=== PATIENT | female | born 1970 | race Caucasian/White ===

== ENCOUNTER 2020-10-11 09:15 | Outpatient (REF) | payer OTHER, SELFPAY ==
[2020-10-11 10:24] LABS: Alanine Aminotransferase 31 U/L (0-31); Albumin Level 4.2 g/dL (3.5-5.0); Alkaline Phosphatase 56 U/L (39-117); Anion Gap 10 (12-20); Aspartate Amino Transferase 20 U/L (5-31); Bilirubin Total 0.6 mg/dL (0.0-1.0); Blood Urea Nitrogen 19 mg/dL (9-16); Calcium 9.4 mg/dL (8.4-10.2); Carbon Dioxide 29 mmol/L (22-29); Chloride 105 mmol/L (96-108); Cholesterol 192 mg/dL; Estimated Glomerular Filt Rate > 60; Glucose Fasting 94 mg/dL (60-99); HDL Cholesterol 63 mg/dL; LDL Cholesterol Calculated 121 mg/dl; Sodium 139 mmol/L (135-145); Total Protein 6.7 g/dL (6.5-8.0); Triglycerides 43 mg/dL
[2020-10-16 19:32] LABS: Vitamin D 25-OH, D2 <4 ng/mL; Vitamin D 25-OH, D3 12 ng/mL; Vitamin D 25-OH, Total 12 ng/mL (30-100)
== END 2020-10-11 09:16 | disposition home or self-care (01) ==
LOC: HO.LAB 09:15
PROVIDERS: PCP Internal Medicine; Visit Provider Internal Medicine
DX: G43.909 Migraine, unspecified, not intractable, without status migrainosus (principal); E78.5 Hyperlipidemia, unspecified; E55.9 Vitamin D deficiency, unspecified
CPT/HCPCS: 36415; 80053; 80061; 82306

== ENCOUNTER 2020-12-20 07:52 | Outpatient (REF) | payer OTHER, SELFPAY ==
--- NOTE | ~2020-12-20 | MM_ITS ---
EXAMINATION: MM SCREENING DIGITAL BREAST TOMOSYNTHESIS, BILATERAL CLINICAL INFORMATION: Screening. Asymptomatic. The lifetime risk of breast cancer based on the Tyrer-Cuzick Model is 9%. COMPARISON: Mammography: 10/27/2019, 07/22/2018, 06/17/2017 TECHNIQUE: Digital breast tomosynthesis is performed in both the craniocaudal and mediolateral oblique views along with computer-aided detection (CAD). Synthesized 2D images are generated from the tomosynthesis. FINDINGS: There are scattered areas of fibroglandular density (ACR BI-RADS breast composition Category b). There are no significant masses, abnormal calcifications, or other abnormalities. The axilla and skin contours are unremarkable. MM/MM tomosynthesis screening BI IMPRESSION: No mammographic evidence of malignancy. ASSESSMENT: BI-RADS 1: Negative RECOMMENDATION: Routine annual mammography screening. This patient's information was entered into a reminder system with a target due date for their next mammogram.
== END 2020-12-20 07:53 | disposition home or self-care (01) ==
LOC: HO.MAMMO 07:52
PROVIDERS: PCP Internal Medicine; Visit Provider Internal Medicine
DX: Z12.31 Encounter for screening mammogram for malignant neoplasm of breast (principal)
CPT/HCPCS: 77063; 77067

== ENCOUNTER → 2021-02-05 13:54 | Outpatient (BNVA) | payer OTHER, SELFPAY | PROVIDERS: PCP Internal Medicine; Visit Provider Surgery | DX: K64.8 Other hemorrhoids (principal) | CPT/HCPCS: 46600 ==

== ENCOUNTER 2021-12-12 08:01 | Outpatient (REF) | payer OTHER, SELFPAY ==
--- NOTE | ~2021-12-12 | XR_ITS ---
EXAMINATION: XR FINGER, RIGHT CLINICAL INFORMATION: Cellulitis. COMPARISON: None. TECHNIQUE: PA view of the right hand as well as oblique and lateral views of the right index finger. FINDINGS: Soft tissue swelling surrounding the 2nd distal interphalangeal joint. Mild joint space narrowing with small marginal osteophytes as well as a tiny ulnar capsular calcification. No osseous erosion. No fracture or dislocation. No radiopaque foreign body. XR/XR finger RT min 2V IMPRESSION: Soft tissue swelling surrounding the 2nd distal interphalangeal joint where there is mild osteoarthritis.
[2021-12-12 10:01] LABS: Vitamin D 25-OH Total 7.5 ng/mL (>30)
[2021-12-12 10:26] LABS: Alanine Aminotransferase 24 U/L (0-31); Albumin Level 4.1 g/dL (3.5-5.0); Alkaline Phosphatase 50 U/L (39-117); Anion Gap 9 (12-20); Aspartate Amino Transferase 17 U/L (5-31); Bilirubin Total 0.5 mg/dL (0.0-1.0); Blood Urea Nitrogen 22 mg/dL (9-16); Calcium 9.2 mg/dL (8.4-10.2); Carbon Dioxide 28 mmol/L (22-29); Chloride 106 mmol/L (96-108); Cholesterol 200 mg/dL; Estimated Glomerular Filt Rate > 60; Glucose Fasting 86 mg/dL (60-99); HDL Cholesterol 60 mg/dL; LDL Cholesterol Calculated 133 mg/dl; Potassium 4.4 mmol/L (3.3-5.1); Sodium 139 mmol/L (135-145); Total Protein 6.4 g/dL (6.5-8.0); Triglycerides 38 mg/dL
== END 2021-12-12 08:02 | disposition home or self-care (01) ==
LOC: HO.XRAY 08:01
PROVIDERS: PCP Internal Medicine; Visit Provider Internal Medicine
DX: Z00.00 Encounter for general adult medical examination without abnormal findings (principal); L03.019 Cellulitis of unspecified finger; E55.9 Vitamin D deficiency, unspecified; L85.3 Xerosis cutis; E78.5 Hyperlipidemia, unspecified
CPT/HCPCS: 36415; 73140; 80053; 80061; 82306; 84443

== ENCOUNTER 2022-01-02 10:08 | Outpatient (REF) | payer OTHER, SELFPAY ==
--- NOTE | ~2022-01-02 | MM_ITS ---
EXAMINATION: MM SCREENING DIGITAL BREAST TOMOSYNTHESIS, BILATERAL CLINICAL INFORMATION: Screening. Asymptomatic. The lifetime risk of breast cancer based on the Tyrer-Cuzick Model is 11%. COMPARISON: Mammography: 12/20/2020, 10/27/2019, 07/22/2018, 06/17/2017, 04/23/2016; bilateral breast ultrasound 05/07/2016 TECHNIQUE: Digital breast tomosynthesis is performed in both the craniocaudal and mediolateral oblique views along with computer-aided detection (CAD). Synthesized 2D images are generated from the tomosynthesis. FINDINGS: There are scattered areas of fibroglandular density (ACR BI-RADS breast composition Category b). There is no significant mass or architectural abnormality. No developing density. No abnormal calcifications. The axilla and skin contours are unremarkable. MM/MM tomosynthesis screening BI IMPRESSION: No significant changes from prior exams. ASSESSMENT: BI-RADS 2: Benign RECOMMENDATION: Routine annual mammography screening. This patient's information was entered into a reminder system with a target due date for their next mammogram.
== END 2022-01-02 10:09 | disposition home or self-care (01) ==
LOC: HO.MAMMO 10:08
PROVIDERS: Visit Provider Internal Medicine
DX: Z12.31 Encounter for screening mammogram for malignant neoplasm of breast (principal)
CPT/HCPCS: 77063; 77067

== ENCOUNTER 2022-12-13 07:23 | Day surgery (SDC) | payer OTHER, SELFPAY ==
[2022-12-09 11:56] VITALS: BMI 21.7
--- NOTE | 2022-12-13 07:28 | MHC.SHP ---
Pre-Procedural Eval Section A Date of Service: 12/13/22 The patient is an INPATIENT: No The History & Physical has been completed within 30 days and I have reviewed it.: No Section B Chief Complaint: screening Details of Present Illness: Colon cancer screening Relevant Family History (Specify if Yes): No Relevant Social History: None Present Medications: see Short Stay Collaborative assessment Medical History: Significant History (Internal and external prolapsed hemorrhoids Migraines Neck pain) History of Previous Operations: Relevant previous surgery/procedure and date(s) (History of nasal polypectomy History of nasal surgery) Allergies: Allergies Allergy/AdvReac Type Severity Reaction Status Date / Time erythromycin base Allergy Unknown Diarrhea Verified 12/09/21 17:27 penicillin V Allergy Unknown hives Verified 12/09/21 17:27 Review of Systems Sugical H&P ROS: Negative: Constitution, Cardiovascular, Respiratory and Gastrointestinal Exam Surgical H&P Exam: Normal: Heart, Normal: Lungs, Normal: Extremities and Normal: Abdomen Plan Diagnosis/Plan: Unchanged I have reviewed the history and physical and performed a pertinent physical examination on my patient. No changes have occurred unless specified. Time Spent With Patient Time: Total time managing care of this patient today ____ minutes.
[2022-12-13 07:33] VITALS: BMI 21.7
[2022-12-13 07:49] LABS: UPreg QC Valid YES; Urine Pregnancy NEGATIVE (NEGATIVE)
[2022-12-13 07:53] VITALS: BP 127/82; PULSE 67; RESP 16; TEMP 36.9; O2SAT 98
[2022-12-13] MEDS: Lactated Ringers 1,000 ML 50 ML IVCONT ×2 (07:59→08:00)
--- NOTE | 2022-12-13 08:11 | HO.ANESPROP2 ---
HPI - Anesthesia Eval Consult details Narrative: forcolon screen PMFSH Active Problems Active Problems: All Active Problems (Updated 12/09/21 @ 17:41 by Denise Rhodes MD) Cellulitis of index finger (Acute) Physical exam (Acute) Dry skin dermatitis (Acute) Internal and external prolapsed hemorrhoids (Acute) Neck pain (Acute) Migraines (Acute) Past Medical History Medical History (Updated 12/09/21 @ 17:41 by Denise Rhodes MD) Cellulitis of index finger Internal and external prolapsed hemorrhoids Migraines Neck pain Physical exam Family History Family History Father Lung cancer Mother Lung cancer Sister Hemochromatosis Arthritis Brother In good health Daughter In good health Sister No problems noted. Sister No problems noted. Sister No problems noted. Family history of problems with anesthesia: No Surgical History Surgical History History of nasal polypectomy History of nasal surgery History of Problems with Anesthesia: No Social History Social History (Updated 12/09/21 @ 17:30 by Denise Rhodes MD) Housing: House Alcohol intake: never Patient Tobacco Use Status: Never used Tobacco e-Cigarette/Vaping Use: Never Used Second Hand Smoke Exposure: Yes Use of substances other than those prescribed or required for medical reasons: No Are you DNR?: No Advance Directives: No Advance Directives Information Provided: Yes Recently lost weight without trying: No Nutrition Risks: No Nutritional Risk service: No Current occupational status: employed Cognitive needs: No Hearing needs: No Vision needs: Yes Meds Allergies Allergy/AdvReac Type Severity Reaction Status Date / Time erythromycin base Allergy Unknown Diarrhea Verified 12/09/21 17:27 penicillin V Allergy Unknown hives Verified 12/09/21 17:27 Active Medications: Current Medications Lactated Ringer's (Lr) 1,000 mls @ 50 mls/hr IVCONT .Q20H AVA Last Admin: 12/13/22 08:00 Dose: 50 mls/hr Home Medications Medication Instructions Recorded Confirmed Last Taken Type montelukast 10 mg tablet 10 mg PO DAILY 10/09/20 12/09/21 Unknown History docusate sodium 100 mg capsule 100 mg PO BID 02/05/21 12/09/21 Unknown History (Colace) Exam Exam Date and Time: December 13, 2022 0811 Height,Weight and Vital Signs: Height 5 ft 3 in Weight 55.792 kg Last Vital Signs Temp 98.4 F 12/13/22 07:53 Pulse 67 12/13/22 07:53 Resp 16 12/13/22 07:53 BP 127/82 12/13/22 07:53 Pulse Ox 98 12/13/22 07:53 O2 Del Method Room Air 12/13/22 07:53 Pertinent Lab Results Pertinent Lab Results: Laboratory Tests 12/13/22 07:40 Urine Test NEGATIVE Airway Mallampati Class: II TM Dist: >3cm Neck ROM: Full Heart: rrr Lungs: cts Assessment and Plan Assessment Anesthesia Assessment: Anesthesia Plan Discussed, Smoking Cess. Discussed and Chart Reviewed Final Anesthetic Review Family History of Problems with Anesthesia: No History of Problems with Anesthesia: No NPO: Yes ASA Class: II Final Preanesthetic Review: No Changes in Pt Med Stat, Meds/Allgs Chart Reviewed, Consent Obtained/Reviewed and Anes Risks/Benef Reviewed Patient Risk: Low Procedure Risk: Low Anesthetic Plan Anesthetic Plan: MAC: Disposition: Standard PACU
--- NOTE | 2022-12-13 08:23 | W.PM.OPN ---
Operative Note Operative Note Date of Service: 12/13/22 Narrative: COLONOSCOPY TILL CECUM WITH BIOPSIES Pre-op diagnosis: Colon cancer screening, chronic constipation Post-op diagnosis:? Colon polyps, diverticulosis, hemorrhoids Endoscopist:? Anegla Carvalho MD Anesthesia:?MAC Consent: Indications for the procedure and potential complications of bleeding, perforation, reaction to medications and missed diagnosis were discussed with the patient and informed consent was obtained. Instrument: Olympus PCF H 190 L variable stiffness pediatric colonoscope Monitoring: Vital signs and clinical assessment, intermittent blood pressure monitoring, continuous EKG monitoring, Pulse oximetry and Carbon Dioxide monitoring were done throughout the procedure. Please see anesthesia flowsheet. Colon withdrawl time was 20 minutes. Procedure: The patient was placed in the left lateral decubitis position and pre-procedure medications were administered. After a digital rectal examination of the ano-rectum, the video colonoscope was inserted into the rectum and advanced through the colon to the cecum. The colonoscope was slowly withdrawn in a retrograde panoramic fashion and the colon mucosa was carefully examined including a retroflexed view of the rectum. Findings and interventions are described below. Procedure Difficulty: There was narrowing and a hair pin turn from 30 to 35 cms due to diverticulosis/spasm which was navigated with some difficulty. Findings: Terminal Ileum: Not evaluated Cecum: Normal Ascending Colon: Scattered moderate diverticulosis throughout the colon Transverse Colon: Two 2-3 mm diminutive appearing polyps - removed with a cold biopsy. Scattered moderate diverticulosis throughout the colon Descending Colon: Scattered moderate diverticulosis throughout the colon Sigmoid Colon: A 3-4 mm diminutive appearing polyp - removed with a cold biopsy. Severe diverticulosis with luminal narrowing Rectum: Normal Ano-rectum: Moderate internal hemorrhoids Colon preparation: Excellent Impression and Post Procedure Diagnosis: Colonoscopy Findings: Three small polyps removed Moderate to severe diverticulosis seen in the entire colon Moderate hemorrhoids on retroflexed exam. Plan: I will send a letter with pathology results Repeat Colonoscopy interval based on path results - in 5 years if polyps are adenomatous and 10 years if polyps are hyperplastic. Above findings were reviewed with the patient and colon polyps and diverticulosis handouts were given in the discharge area
[2022-12-13 09:23] VITALS: BP 107/64; PULSE 61; RESP 16; TEMP 36.2; O2SAT 100
[2022-12-13 09:38] VITALS: BP 116/71; PULSE 65; RESP 16; TEMP 36.6; O2SAT 100
== END 2022-12-13 11:10 | disposition home or self-care (01) ==
PROVIDERS: Anesthesiology; PCP Internal Medicine; Visit Provider Internal Medicine Gastroenterology
PROC: 0DJD8ZZ Inspection of Lower Intestinal Tract, Via Natural or Artificial Opening Endoscopic (ICD-10-PCS; CPT 45378; principal; 2022-12-13 08:30)
DX: Z12.11 Encounter for screening for malignant neoplasm of colon (principal); K63.5 Polyp of colon; K57.30 Diverticulosis of large intestine without perforation or abscess without bleeding; K64.8 Other hemorrhoids; K59.09 Other constipation
CPT/HCPCS: 45380; 81025; 88305

== ENCOUNTER 2022-12-25 08:07 | Outpatient (REF) | payer OTHER, SELFPAY ==
[2022-12-25 09:02] LABS: Alanine Aminotransferase 19 U/L (0-31); Albumin Level 3.8 g/dL (3.5-5.0); Alkaline Phosphatase 47 U/L (39-117); Anion Gap 11 (12-20); Aspartate Amino Transferase 15 U/L (5-31); Bilirubin Total 0.5 mg/dL (0.0-1.0); Blood Urea Nitrogen 23 mg/dL (9-16); Calcium 8.7 mg/dL (8.4-10.2); Carbon Dioxide 26 mmol/L (22-29); Chloride 108 mmol/L (96-108); Cholesterol 221 mg/dL; Estimated Glomerular Filt Rate > 60; Glucose Fasting 88 mg/dL (60-99); HDL Cholesterol 64 mg/dL; LDL Cholesterol Calculated 149 mg/dl; Potassium 4.8 mmol/L (3.3-5.1); Sodium 140 mmol/L (135-145); Total Protein 5.9 g/dL (6.5-8.0); Triglycerides 42 mg/dL
[2022-12-25 09:18] LABS: Vitamin D 25-OH Total 9.9 ng/mL (>30)
== END 2022-12-25 08:08 | disposition home or self-care (01) ==
LOC: HO.LAB 08:07
PROVIDERS: PCP Internal Medicine; Visit Provider Internal Medicine
DX: E78.5 Hyperlipidemia, unspecified (principal); E55.9 Vitamin D deficiency, unspecified; M25.40 Effusion, unspecified joint
CPT/HCPCS: 36415; 80053; 80061; 82306

== ENCOUNTER → 2022-12-27 15:28 | Outpatient (BNVA) | payer OTHER, SELFPAY | PROVIDERS: PCP Internal Medicine; Visit Provider Surgery | DX: Z13.89 Encounter for screening for other disorder (principal) ==

== ENCOUNTER 2023-01-29 08:35 | Outpatient (REF) | payer OTHER, SELFPAY ==
--- NOTE | ~2023-01-29 | MM_ITS ---
EXAMINATION: MM SCREENING DIGITAL BREAST TOMOSYNTHESIS, BILATERAL CLINICAL INFORMATION: Screening. Asymptomatic. The lifetime risk of breast cancer based on the Tyrer-Cuzick Model is 10%. COMPARISON: Prior mammography exams, including most recent 01/02/2022. TECHNIQUE: Digital breast tomosynthesis is performed in both the craniocaudal and mediolateral oblique views along with computer-aided detection (CAD). Synthesized 2D images are generated from the tomosynthesis. FINDINGS: There are scattered areas of fibroglandular density (ACR BI-RADS breast composition Category b). There are no significant masses, abnormal calcifications, or other abnormalities. Breast tissue composition borders on heterogeneously dense. There is stable smooth oval nodule mid lower outer left breast. No architectural abnormality. No developing density. The axilla are unremarkable. No significant changes. MM/MM tomosynthesis screening BI IMPRESSION: No mammographic evidence of malignancy. ASSESSMENT: BI-RADS 2: Benign RECOMMENDATION: Routine annual mammography screening. This patient's information was entered into a reminder system with a target due date for their next mammogram.
== END 2023-01-29 08:36 | disposition home or self-care (01) ==
LOC: HO.MAMMO 08:35
PROVIDERS: Visit Provider Internal Medicine
DX: Z12.31 Encounter for screening mammogram for malignant neoplasm of breast (principal)
CPT/HCPCS: 77063; 77067

== ENCOUNTER 2023-04-18 08:21 | Outpatient (AMB) | payer OTHER, SELFPAY ==
--- NOTE | 2023-04-18 08:22 | A.OFFVIS_ITS ---
Intake Vital Signs 04/18/23 08:23 Height 5 ft 3 in Weight 127 lb 13.89 oz BMI 22.6 BP 116/64 Blood Pressure Location Rt brachial Position Sitting Pulse 69 Pulse Source Pulse Oximeter Temp 97.2 F Temp Source Skin Pulse Oximetry (%) 99 Oxygen Delivery Method Room Air Intake Visit Reasons: Effusion,unspecified joint Intake Note: Here for joint effusion, antonio index finger arthritis, right great toe discomfort Tafe Registrar Required: No Accompanied by: Self / Same As Patient Allergies erythromycin base Allergy (Unknown, Verified 04/18/23 08:23) Diarrhea penicillin V Allergy (Unknown, Verified 04/18/23 08:23) hives HPI HPI Comments History of Present Illness Details The patient presents with complaints of hand and foot pain. Mostly this is at the 2nd D IP in the right finger. This had developed a few years ago. There was no injury involved. There was a fair amount of swelling and redness at the time so there was concern about about infection. She was treated with doxycycline and she did not really get much improvement although the swelling went down in a few weeks. She also gets some pain now at the 2nd DIP in the left hand. There was also an episode of painful swelling of the right thumb. She did not seek medical attention for that but took some ibuprofen and it improved. She does get some catching at times of the right thumb. She also has pain across the 1st MTP joints in the feet, usually after prolonged walking, it is greater in the right foot. There has been no injury in this area. She does not take any medication for this currently. She works as a dental hygienist. [facility] [employer] Medical History (Updated 04/18/23 @ 09:07 by Tucker Silva MD) Cellulitis of index finger Internal and external prolapsed hemorrhoids Migraines Neck pain Physical exam Surgical History History of nasal polypectomy History of nasal surgery Family History Father Lung cancer Mother Lung cancer Sister Hemochromatosis Arthritis Brother In good health Daughter In good health Sister No problems noted. Sister No problems noted. Sister No problems noted. Social History Housing: House Alcohol intake: never Patient Tobacco Use Status: Never used Tobacco e-Cigarette/Vaping Use: Never Used Second Hand Smoke Exposure: Yes service: No Current occupational status: employed Cognitive needs: No Hearing needs: No Vision needs: Yes Review of Systems Const Details: Negative for appetite change, weight change, fever, chills, malaise and fatigue Eyes Details: Negative for vision change, dry eyes,headaches and dizziness ENT Details: Negative for hearing change, tinnitus, oral ulcer, nose bleeds and oral dryness. Card Details: Negative chest pain, edema and syncope Resp Details: Negative for SOB, cough and wheezing GI Details: Negative indigestion/heartburn, nausea, abdominal pain, bowel changes, diarrhea, constipation and bloody stool. Details: Negative for dysuria, hematuria, nocturia, decreased force/flow and genital discharge Skin/Breast Details: Negative for itching, rash, hives, Raynaud's symptoms, sun sensitivity, and skin cancer Neuro Details: Negative for epilepsy, palsy, stroke, changes in speech, tingling and weakness Psych Details: Negative for anxiety, depression and stress Endo Details: Negative for polyuria and polydypsia Delta/Lymph Details: Negative for excessive bruising or bleeding. Physical Exam Vital Signs: Last Vital Signs Temp 97.2 F 04/18/23 08:23 Pulse 69 04/18/23 08:23 BP 116/64 04/18/23 08:23 Pulse Ox 99 04/18/23 08:23 Oxygen Delivery Method Room Air 04/18/23 08:23 BMI result Body Mass Index 22.6 APPEARANCE: Patient in no acute distress EYES no redness, pupils equal and reactive to light, eyelids normal EARS: External ear normal, canal clear and tympanic membrane normal. NOSE/SINUS: Airflow through both nares, no nasal discharge, no bleeding THROAT: Oral mucosa moist, no ulcerations NECK: No thyromegaly or masses, no adenopathy, trachea midline. HEART: Regulrar rhythm, S1-S2 heard, no murmurs, rubs or gallops. LUNG: Clear to percussion and auscultation ABD: Normal bowel sounds, no organomegaly, masses or tenderness. EXTREMITIES: No edema, no calf tenderness, normal peripheral pulses. NEURO: Oriented and alert x3. No focal weakness. Reflexes symmetric. Gait normal. SKIN: No inflammatory or neoplastic lesions. Normal color and turgor JOINT EXAM:.?? Cervical Spine:.? Full range of motion without pain; no tenderness. Thoracic Spine:.? No scoliosis.? No tenderness on palpation. Lumbar Spine:.? Alignment normal.? Mild pain at full flexion. Straight leg raising is negative. No tenderness. Chest Wall:.? No tenderness, swelling, increased warmth or erythema. Hands: Right: There is pain-free range of motion but she does have bony enlargement at the 2nd and 5th DIP joints. The 2nd is mildly tender. There is slight flexion deformity at that 2nd DIP.? There is no sensory loss or thenar atrophy. No areas of soft tissue swelling. No flexor tendon triggering or swelling. Left: Normal pain-free range of motion. There is mild bony enlargement at the 2nd DIP joint without tenderness. Other joints are without tenderness, swelling, increased warmth or erythema. There is no thenar atrophy, sensory loss or flexor tendon triggering.. Wrists:.? Normal pain-free range of motion without tenderness, swelling, incr eased warmth or erythema. Elbows:. Normal pain-free range of motion without tenderness, swelling, increased warmth or erythema. Shoulders:.?? Full range of motion without pain. No tenderness, weakness, swelling, increased warmth or erythema. Hips:. Left: Slight lateral pain with extremes of external rotation or abduction. No groin pain with motion. Right:? Full range of motion without pain. Hip bursa:.? Mild lateral trochanteric tenderness. Knees:.?? Normal pain-free range of motion without tenderness, swelling, increased warmth or erythema.? There is no effusion or crepitation Ankles:.? Right: Normal pain-free range of motion without tenderness, swelling, increased warmth or erythema. Left: Normal pain-free range of motion. There may be some slight valgus at the ankle. There is no swelling or tenderness. Feet:.? Right: Normal pain-free range of motion with some slight hallux valgus and mild bony enlargement at the 1st MTP joint. Other joints are not tender or swollen. Left: Normal pain-free range of motion with mild bony enlargement and tenderness at the 1st MTP. There is some slight hallux valgus deformity at that joint as well. Elsewhere the joints have normal pain-free range of motion wit hout tenderness, swelling, increased warmth or erythema. Tender points:.? No tenderness to digital palpation at the occiput, trapezius, second rib, lateral epicondyle, knees, greater trochanter and gluteal area bilaterally. ? Results Reviewed Results Reviewed: [address] [address] XRay Report Signed Patient: Vanessa Urban MR#: [id number] : 1970 Acct:[id number] Age/Sex: 51 / F ADM Date: 12/12/[address]: Denise Rhodes MD Ordering Physician: Denise Dial MD Date of Service: 12/12/21 Procedure(s): XR finger RT min 2V Accession Number(s): [id number] cc: Denise Dial MD~ EXAMINATION: XR FINGER, RIGHT CLINICAL INFORMATION: Cellulitis.? COMPARISON: None.? TECHNIQUE: PA view of the right hand as well as oblique and lateral views of the right index finger. FINDINGS: Soft tissue swelling surrounding the 2nd distal interphalangeal joint. Mild joint space narrowing with small marginal osteophytes as well as a tiny ulnar capsular calcification. No osseous erosion. No fracture or dislocation. No radiopaque foreign body.? XR/XR finger RT min 2V IMPRESSION: Soft tissue swelling surrounding the 2nd distal interphalangeal joint where there is mild osteoarthritis. Dictated By: Lazaro Serra MD Assessment & Plan Assessment & Plan (1) Foot pain, bilateral: Code(s): M79.671 - Pain in right foot; M79.672 - Pain in left foot (2) Hand pain, right: Code(s): M79.641 - Pain in right hand (3) Osteoarthritis of fingers of both hands: Code(s): M19.041 - Primary osteoarthritis, right hand; M19.042 - Primary osteoarthritis, left hand Plan The findings in the hands are consistent with some DIP joint osteoarthritis. The episode of painful swelling of the thumb accompanied by triggering may have just been some flexor tenosynovitis. That seems to be occasionally bothersome with some triggering. Today I do not really see any tendon tenderness or triggering. If she were to develop those symptoms we could consider a corticosteroid injection or surgical consult. For the DIP OA symptomatic measures with acetaminophen and or [id number] analgesia creams would be reasonable. The 1st MTP bilaterally he has some hallux valgus and the left is tender today although it is usually the right 1st MTP that is tender for her. I would suspect this some OA in the feet as well. We will get some x-rays. If the foot pain continues to be bothersome to her she might want to see a associate professor of archaeology. I will get back to her with the results of the x-rays but I do not think follow-up is needed right now. Orders: Orders XR foot LT min 3V Today M79.671 - Pain in right foot, M79.672 - Pain in left foot XR foot RT min 3V Today M79.671 - Pain in right foot, M79.672 - Pain in left foot Coding Level of Care Code New Pt Level 3 (01611) Diagnoses Foot pain, bilateral M79.671; M79.672 Hand pain, right M79.641 Osteoarthritis of fingers of both hands M19.041; M19.042
[2023-04-18 08:23] VITALS: BP 116/64; PULSE 69; TEMP 36.2; O2SAT 99; BMI 22.6
== END 2023-04-18 09:00 | disposition home or self-care (01) ==
PROVIDERS: PCP Internal Medicine; Visit Provider Internal Medicine Rheumatology
DX: M79.671 Pain in right foot (principal); M79.672 Pain in left foot; M79.641 Pain in right hand; M19.041 Primary osteoarthritis, right hand; M19.042 Primary osteoarthritis, left hand
CPT/HCPCS: 99203

== ENCOUNTER 2023-04-18 08:21 | Outpatient (REF) | payer OTHER, SELFPAY ==
--- NOTE | ~2023-04-18 | XR_ITS ---
EXAMINATION: XR bilateral feet CLINICAL INFORMATION: Pain COMPARISON: None. TECHNIQUE: AP, oblique and lateral views of bilateral feet. FINDINGS: Right foot: Mild degenerative changes in the first metatarsophalangeal joint with mild hypertrophic change. Cystic lucencies along the medial aspect of the right first metatarsal head with medial focal soft tissue swelling/bunion. No displaced fracture. Left foot: Minimal degenerative changes in the first metatarsophalangeal joint with mild hypertrophic change. No displaced fracture. XR/XR foot LT min 3V IMPRESSION: 1. Mild degenerative changes right first metatarsophalangeal joint with cystic lucencies along the medial aspect of the first metatarsal head. 2. Minimal degenerative changes left first metatarsal pharyngeal joint. Recommend follow-up imaging in 10-14 days if fracture is suspected.
--- NOTE | ~2023-04-18 | XR_ITS ---
EXAMINATION: XR bilateral feet CLINICAL INFORMATION: Pain COMPARISON: None. TECHNIQUE: AP, oblique and lateral views of bilateral feet. FINDINGS: Right foot: Mild degenerative changes in the first metatarsophalangeal joint with mild hypertrophic change. Cystic lucencies along the medial aspect of the right first metatarsal head with medial focal soft tissue swelling/bunion. No displaced fracture. Left foot: Minimal degenerative changes in the first metatarsophalangeal joint with mild hypertrophic change. No displaced fracture. XR/XR foot RT min 3V IMPRESSION: 1. Mild degenerative changes right first metatarsophalangeal joint with cystic lucencies along the medial aspect of the first metatarsal head. 2. Minimal degenerative changes left first metatarsal pharyngeal joint. Recommend follow-up imaging in 10-14 days if fracture is suspected.
== END 2023-04-18 08:22 | disposition home or self-care (01) ==
LOC: HO.XRAY 08:21
PROVIDERS: PCP Internal Medicine; Visit Provider Internal Medicine Rheumatology
DX: M79.671 Pain in right foot (principal); M79.672 Pain in left foot; M19.041 Primary osteoarthritis, right hand; M19.042 Primary osteoarthritis, left hand
CPT/HCPCS: 73630

== ENCOUNTER 2023-05-03 05:59 | Day surgery (SDC) | payer OTHER, SELFPAY ==
[2023-04-28 11:14] VITALS: BMI 22.1
--- NOTE | 2023-05-02 09:28 | P.CONAN_ITS ---
Documented by User: Mónica Call NP 05/02/23 09:28 HPI - Anesthesia Eval Consult details Narrative: 52yo F for Exam Under Anesthesia, Hemorrhoidectomy PMFSH Active Problems Active Problems: All Active Problems (Updated 04/28/23 @ 11:12 by Maria A Steve RN) Dry skin dermatitis (Acute) Foot pain, bilateral (Acute) Hand pain, right (Acute) Osteoarthritis of fingers of both hands (Acute) Internal and external prolapsed hemorrhoids (Acute) Migraines (Acute) Past Medical History Medical History Cellulitis of index finger Internal and external prolapsed hemorrhoids Migraines Neck pain Osteoarthritis Physical exam Family History Family History Father Lung cancer Mother Lung cancer Sister Hemochromatosis Arthritis Brother In good health Daughter In good health Sister No problems noted. Sister No problems noted. Sister No problems noted. Family history of problems with anesthesia: No Surgical History Surgical History H/O colonoscopy History of nasal polypectomy History of nasal surgery History of Problems with Anesthesia: No Social History Social History Housing: House Alcohol intake: never Patient Tobacco Use Status: Never used Tobacco e-Cigarette/Vaping Use: Never Used Second Hand Smoke Exposure: Yes Use of substances other than those prescribed or required for medical reasons: No Are you DNR?: No Advance Directives: No Advance Directives Information Provided: Yes service: No Current occupational status: employed Cognitive needs: No Hearing needs: No Vision needs: Yes Meds Allergies Allergy/AdvReac Type Severity Reaction Status Date / Time erythromycin base Allergy Unknown Diarrhea Verified 04/18/23 08:23 penicillin V Allergy Unknown hives Verified 04/18/23 08:23 Home Medications Medication Instructions Recorded Confirmed Last Taken Type docusate sodium 100 mg capsule 100 mg PO BID 02/05/21 05/03/23 Unknown History (Colace) lutein 10 mg tablet 10 mg PO DAILY 04/18/23 05/03/23 Unknown History Exam Exam Date and Time: May 02, [id number] Height,Weight and Vital Signs: Height 5 ft 3 in Weight 56.699 kg Pertinent Lab Results Pertinent Lab Results: Laboratory Tests 12/25/22 08:18 Sodium 140 Potassium 4.8 Chloride 108 Carbon Dioxide 26 BUN 23 H Creatinine 0.86 Assessment and Plan Final Anesthetic Review Family History of Problems with Anesthesia: No History of Problems with Anesthesia: No Documented by User: Sean Adrian MD 05/03/23 07:27 PMF Past Medical History Medical History Cellulitis of index finger Internal and external prolapsed hemorrhoids Migraines Neck pain Osteoarthritis Physical exam Family History Family History Father Lung cancer Mother Lung cancer Sister Hemochromatosis Arthritis Brother In good health Daughter In good health Sister No problems noted. Sister No problems noted. Sister No problems noted. Surgical History Surgical History H/O colonoscopy History of nasal polypectomy History of nasal surgery Social History Social History Housing: House Alcohol intake: never Patient Tobacco Use Status: Never used Tobacco e-Cigarette/Vaping Use: Never Used Second Hand Smoke Exposure: Yes Use of substances other than those prescribed or required for medical reasons: No Are you DNR?: No Advance Directives: No Advance Directives Information Provided: Yes service: No Current occupational status: employed Cognitive needs: No Hearing needs: No Vision needs: Yes Meds Allergies Allergy/AdvReac Type Severity Reaction Status Date / Time erythromycin base Allergy Unknown Diarrhea Verified 04/18/23 08:23 penicillin V Allergy Unknown hives Verified 04/18/23 08:23 Home Medications Medication Instructions Recorded Confirmed Last Taken Type docusate sodium 100 mg capsule 100 mg PO BID 02/05/21 05/03/23 Unknown History (Colace) lutein 10 mg tablet 10 mg PO DAILY 04/18/23 05/03/23 Unknown History Exam Airway Mallampati Class: II TM Dist: >3cm Neck ROM: Full Loose/Missing/Broken Teeth: No Heart: ok Lungs: ok Assessment and Plan Assessment Anesthesia Assessment: Anesthesia Plan Discussed and Chart Reviewed Final Anesthetic Review NPO: Yes ASA Class: II Final Preanesthetic Review: No Changes in Pt Med Stat, Meds/Allgs Chart Revie wed, Consent Obtained/Reviewed and Anes Risks/Benef Reviewed Patient Risk: Low Procedure Risk: Intermediate Anesthetic Plan Anesthetic Plan: GA and Agree w/ Assess. and Plan Disposition: Standard PACU
[2023-05-03] VITALS (7 sets, daily range): BP systolic 88–133; BP diastolic 50–77; PULSE 55–68; RESP 15–18; TEMP 36.5–36.9; O2SAT 96–100; BMI 22.1
[2023-05-03 06:25] LABS: UPreg QC Valid YES; Urine Pregnancy NEGATIVE (NEGATIVE)
[2023-05-03] MEDS: Lactated Ringers 1,000 ML 100 ML IVCONT (06:33)
--- NOTE | 2023-05-03 08:17 | P.OP_ITS ---
Operative Note Operative Note Date of Service: 05/03/23 Narrative: Preop diagnosis code internal external hemorrhoids, with pain and frequent inflammation Postop diagnosis: The same Procedure: Exam under anesthesia hemorrhoidectomy x3 columns Surgeon: Seb Martinez MD Senior Radiation Therapist: SHARMIN Irizarry student The patient is a 2-year-old female with a long history of frequent pain and swelling with her hemorrhoids. She therefore wanted to proceed with hemorrhoidectomy. She and there was to the procedure as well as the risks, benefits, and alternatives She was brought to the operating room. She was placed in prone chelo-knife position under general anesthesia via laryngeal mask airway. The buttocks were retracted with wide tape laterally. The perianal area was prepped and draped in this was sterile fashion. A surgical time-out was done. The patient received Cefotan 2 g IV preoperatively I infiltrated the perianal area with lidocaine 1%. Examination of the anal orifice revealed bulky hemorrhoidal column external mostly on the right side x2, along with a smaller column on the left. I inserted the Urmila Crowell retractor and examined the anal canal circumferentially. Again, these hemorrhoid noted above were seen and was noted to be a mix of internal external. There were no other lesions. There was no fissure. There was no ulcer or induration I applied a Dee grasper at the largest hemorrhoidal column on the right side to retract this. I made a axeige-zu-zzyyp stitch at its pedicle using chromic 3-0. I made an incision around this hemorrhoidal column to the perianal skin with a blade 15. And excise this hemorrhoid above the plane of sphincters along this incision with scissors. I closed the incision with a running chromic 3-0 stitch with additional hemostatic mssjoe-lw-[id number] sutures being placed I retracted the 2nd hemorrhoidal column on the right side as well which was a little more anteriorly in the same fashion. I made a figure-eight stitch at the pedicle chromic 3-0 and made an incision around this column to the perianal skin using blade 15. I excised this above the plane of sphincters as well and closed the incision with a running chromic 3-0 stitch The smaller hemorrhoidal column the left with excise as well. This was retracted with a Dee grasper. A shviit-ip-asjtg stitch was placed at its pedicle using chromic 3-0. I made an incision around this column using blade 15 and excise this above the plane of sphincters along this incision with scissors. I closed this incision with a running chromic 3-0 stitch with additional hemostatic sutures placed as well Once hemostasis was confirmed, proceeded with then infiltrated the perianal area generously with Marcaine 1%. I rolled Gelfoam packing was placed The procedure was completed. The patient tolerated procedure well. There were no immediate complications. Initial and final counts of sponges and instruments were correct. Estimated blood loss was about 20 cc The patient was extubated without difficulty and transferred to the recovery room with stable vital signs
--- NOTE | 2023-05-03 08:35 | MHC.SHP ---
Pre-Procedural Eval Section A Date of Service: 05/03/23 Section B Chief Complaint: Other hemorrhoids Details of Present Illness: has had a long hx of pain and inflammation with her hemorrhoids Relevant Family History (Specify if Yes): No Relevant Social History: None Present Medications: see Short Stay Collaborative assessment Medical History: Significant History (migraine) History of Previous Operations: No relevant previous surgery Allergies: Allergies Allergy/AdvReac Type Severity Reaction Status Date / Time erythromycin base Allergy Unknown Diarrhea Verified 04/18/23 08:23 penicillin V Allergy Unknown hives Verified 04/18/23 08:23 Review of Systems Sugical H&P ROS: Negative: Constitution, Cardiovascular, Respiratory, Neurological, Psychiatric, Hem-Onc, Allergic/Immunologic, Gastrointestinal, Genitourinary, Musculoskeletal, Integumentary, Endocrine and Eyes/Ears/Nose/Throat Exam Surgical H&P Exam: Normal: HEENT, Normal: Heart, Normal: Lungs, Normal: Extremities, Normal: Abdomen, Normal: Skin and Normal: Neurological Plan Diagnosis/Plan: Unchanged I have reviewed the history and physical and performed a pertinent physical examination on my patient. No changes have occurred unless specified. Time Spent With Patient Time: Total time managing care of this patient today ____ minutes.
[2023-05-03] MEDS: oxyCODONE HCl Immed Release 5 MG TABLET PO (09:13)
[2023-05-03] MEDS: Acetaminophen 325 MG TABLET 650 MG PO (09:13)
[2023-05-03] MEDS: Ondansetron ODT 4 MG TAB.RAPDIS TRANSLINGU (10:15)
--- NOTE | 2023-05-03 10:16 | PC.NURSE ---
PATIENT STATED FEELING NAUSEOUS IN DC AREA. DR. MACK NOTIFIED AND PATIENT GIVEN ZOFRAN 4 MG SL. COOL CLOTH GIVEN.
--- NOTE | 2023-05-03 10:24 | PC.NURSE ---
PATIENT STATES FEELING BETTER AFTER ZOFRAN. PT STATES SHE IS READY TO GO HOME. PATIENT DISCHARGED HOME.
== END 2023-05-03 10:25 | disposition home or self-care (01) ==
PROVIDERS: Anesthesiology; PCP Internal Medicine; Visit Provider Surgery
PROC: (CPT 46260; principal; 2023-05-03 07:30)
PROC: (CPT 46260; 2023-05-03 07:30)
DX: K64.8 Other hemorrhoids (principal); K64.4 Residual hemorrhoidal skin tags; Z79.899 Other long term (current) drug therapy; Z88.0 Allergy status to penicillin; Z88.1 Allergy status to other antibiotic agents
CPT/HCPCS: 46260; 81025; 88304; J1885; J2250; J2405; J3010

== ENCOUNTER → 2023-05-03 05:59 | Outpatient (BNV) | payer OTHER, SELFPAY | PROVIDERS: PCP Internal Medicine; Visit Provider Surgery | DX: K64.8 Other hemorrhoids (principal) | CPT/HCPCS: 46260 ==

== ENCOUNTER 2023-05-16 09:37 | Outpatient (AMB) | payer OTHER, SELFPAY ==
--- NOTE | 2023-05-16 09:49 | A.OFFVIS_ITS ---
Intake Intake Visit Reasons: S/P hemorrhoidectomy Intake Note: This patient presents for a post-op assessment status post hemorrhoidectomy. Patient c/o; reports drainage left side, reports pain. Advanced Registered Nurse Required: No Accompanied by: Self / Same As Patient Allergies erythromycin base Allergy (Unknown, Verified 05/16/23 09:50) Diarrhea penicillin V Allergy (Unknown, Verified 05/16/23 09:50) hives HPI S/P hemorrhoidectomy HPI Details She had undergone hemorrhoidectomy x3 columns last 05/03/2023. She tolerated the procedure well. She currently states that she still has swelling and pain in the area or although this has been improving. [facility] Medical History Osteoarthritis Cellulitis of index finger Physical exam Internal and external prolapsed hemorrhoids Neck pain Migraines Surgical History History of hemorrhoidectomy H/O colonoscopy History of nasal surgery History of nasal polypectomy Family History Father Lung cancer Mother Lung cancer Sister Hemochromatosis Arthritis Brother In good health Daughter In good health Sister No problems noted. Sister No problems noted. Sister No problems noted. Social History Housing: House Alcohol intake: never Patient Tobacco Use Status: Never used Tobacco e-Cigarette/Vaping Use: Never Used Second Hand Smoke Exposure: Yes service: No Current occupational status: employed Cognitive needs: No Hearing needs: No Vision needs: Yes Review of Systems Const Denies chills and Denies fever(s) Card Denies chest pain, Denies dyspnea and Denies dyspnea on exertion Resp Denies cough, Denies dyspnea and Denies dyspnea on exertion GI Denies hematochezia and Denies change in bowel habits Denies hematuria Musc Denies back pain and Denies limited range of motion Neuro Denies focal weakness and Denies convulsions Psych Denies depression and Denies mood swings Physical Exam Const General: comfortable and no acute distress Resp Effort & Inspection: normal respiratory effort GI Other: Rectal exam shows some edema on the hemorrhoidectomy sites, no induration, no redness, no pus Assessment & Plan Assessment & Plan (1) Internal and external prolapsed hemorrhoids: Code(s): K64.8 - Other hemorrhoids Plan: Status post hemorrhoidectomy. Her incisions are healing well. She does have significant residual edema so I told her to continue doing hot Sitz baths or warm soaks She can take fiber supplements as well as she says that she still gets constipated I will see her again in the office in about a month for another wound check. Coding Level of Care Code Global (25594) Diagnoses Internal and external prolapsed hemorrhoids K64.8
== END 2023-05-16 09:57 | disposition home or self-care (01) ==
PROVIDERS: PCP Internal Medicine; Visit Provider Surgery
DX: K64.8 Other hemorrhoids (principal)
CPT/HCPCS: 99024

== ENCOUNTER → 2023-05-16 09:37 | Outpatient (BNVA) | payer OTHER, SELFPAY | PROVIDERS: PCP Internal Medicine; Visit Provider Surgery ==

== ENCOUNTER 2023-06-02 16:59 | Outpatient (AMB) | payer OTHER, SELFPAY ==
[2023-06-02 17:03] VITALS: BP 122/70; BMI 21.1
--- NOTE | 2023-06-02 17:03 | A.OFFPC_ITS ---
Vital Signs 06/02/23 17:03 Height 5 ft 3 in Weight 119 lb BMI 21.1 BP 122/70 Blood Pressure Location Lt brachial Position Sitting Intake Visit Reasons: lump on right breast Intake Note: Patient here c/o lump on right breast Electronic Warfare Technician Required: No Accompanied by: Self / Same As Patient Allergies erythromycin base Allergy (Unknown, Verified 06/02/23 17:15) Diarrhea penicillin V Allergy (Unknown, Verified 06/02/23 17:15) hives Medication List - Last Reconciled 06/02/23 by Denise Rhodes MD cholecalciferol (vitamin D3) 50 mcg PO DAILY 90 days docusate sodium (Colace) 100 mg PO BID docusate sodium (Colace) 100 mg PO BID ibuprofen 600 mg PO Q6H PRN lidocaine 5% 1 appl topical TID PRN lutein 10 mg PO DAILY oxycodone-acetaminophen 5-325 mg (Percocet) 1 tab PO Q4-6H PRN sumatriptan succinate 50 mg PO Q2-4H PRN 30 days Tobacco use date assessed: 12/16/22 Dental Screening Dental Screen Date: 06/02/23 Did you have a dental visit in the last 12 months?: Yes Did you have a dental problem in the last 6 months where you did not have access to dental care?: No Was dental information given to patient?: Patient has dentist HPI HPI Comments History of Present Illness Details This is a 52-year-old female that complains of a right breast mass that has been present about 6-8 weeks ago. Located at 06:00 o'clock. Nontender. Denies any nipple retraction or nipple discharge. The area looks slightly red. She did a mammogram this year which was benign. No family history of breast cancer. [facility] Medical History (Updated 06/03/23 @ 13:58 by Denise Rhodes MD) Osteoarthritis Cellulitis of index finger Physical exam Internal and external prolapsed hemorrhoids Neck pain Migraines Surgical History History of hemorrhoidectomy H/O colonoscopy History of nasal surgery History of nasal polypectomy Family History Father Lung cancer Mother Lung cancer Sister Hemochromatosis Arthritis Brother In good health Daughter In good health Sister No problems noted. Sister No problems noted. Sister No problems noted. Social History Housing: House Alcohol intake: never Patient Tobacco Use Status: Never used Tobacco e-Cigarette/Vaping Use: Never Used Second Hand Smoke Exposure: Yes service: No Current occupational status: employed Current occupational exposures/hazards: No Cognitive needs: No Hearing needs: No Vision needs: Yes Questionnaire Thrive Questionnaire Date Thrive assessed: 12/16/22 GREGG-7 AMB Questionnaire GREGG-7 Date GREGG - 7 assessed: 12/16/22 Source: Developed by Drs. Kevin Ruelas, Paola Isaac, Acosta Larkin and colleagues, with an educational jason from [employer]. Review of Systems Const All systems reviewed & are unremarkable except as noted in HPI and below Eyes Reports no additional complaints, Denies change in vision and Denies other visual disturbances Card Denies chest pain at rest, Denies chest pain with activity, Denies edema, Denies irregular heart rhythm, Denies claudication, Denies dyspnea, Denies dyspnea on exertion, Denies orthopnea, Denies paroxysmal nocturnal dyspnea and Denies slow heart rate Resp Denies cough, Denies dyspnea and Denies dyspnea on exertion GI Denies abdominal pain, Denies change in bowel habits, Denies excessive flatus, Denies nausea and Denies vomiting Denies urinary incontinence, Denies urinary hesitancy and Denies urinary urgency Musc Denies abnormal gait, Denies atrophy, Denies deformity and Denies limited range of motion Skin/Breast Denies bleeding lesions, Denies changing lesions and Denies rash Neuro Denies abnormal gait and Denies lack of coordination Physical exam (Primary Care) Vital Signs: Last Vital Signs BP 122/70 06/02/23 17:03 BMI result Body Mass Index 21.1 Tobacco/Smoking Status: Tobacco use Status Tobacco use date assessed 12/16/22 06/02/23 17:07 Patient Tobacco Use Status Never used Tobacco 06/02/23 17:07 e-Cigarette/Vaping Use Never Used 06/02/23 17:07 Thrive Assessment: Date of Thrive Assessment Date Thrive assessed 12/16/22 06/02/23 17:07 Eyes General: appearance normal, both eyes and all related structures Eyelids: Yes eyelids normal Conjunctivae: conjunctivae normal Neck Neck: Yes normal visual inspection and Yes supple Chest Breast/axilla palpation: abnormal palpation of the breast (Right breast mass at 06:00 o'clock) Resp Effort & Inspection: normal respiratory effort Auscultation: clear to auscultation bilaterally Cardio Jugular venous distension: no JVD Rate: regular rate Rhythm: regular rhythm Heart sounds: S1 normal heart sound present and S2 normal heart sound present Extrem General: Yes full ROM Assessment and Plan Assessment & Plan (1) Breast mass, right: Comment: At 6 o'clock Code(s): N63.10 - Unspecified lump in the right breast, unspecified quadrant Qualifiers: Breast mass location: subareolar Qualified Code(s): N63.41 - Unspecified lump in right breast, subareolar Plan: Ultrasound of the breast and diagnostic mammogram ordered Orders: Orders US breast RT complete 06/02/23 N63.10 - Unspecified lump in the right breast, unspecified quadrant MM diagnostic mammo unilat RT 06/02/23 N63.10 - Unspecified lump in the right breast, unspecified quadrant Coding Level of Care Code Est Pt Level 3 (39216) Diagnoses Subareolar mass of right breast N63.41 Breast mass location: subareolar Time Spent (min) 18
== END 2023-06-02 17:29 | disposition home or self-care (01) ==
PROVIDERS: PCP Internal Medicine; Visit Provider Internal Medicine
DX: N63.41 Unspecified lump in right breast, subareolar (principal)
CPT/HCPCS: 99213

== ENCOUNTER 2023-06-09 09:51 | Outpatient (AMB) | payer OTHER, SELFPAY ==
--- NOTE | 2023-06-09 10:03 | MHC.OFFVIS ---
Intake Vital Signs 06/09/23 10:04 Height 5 ft 3 in Weight 122 lb BMI 21.6 BP 101/55 L Blood Pressure Location Rt brachial Position Sitting Pulse 72 Intake Visit Reasons: S/P hemorrhoidectomy, 1 mo follow up Intake Note: This patient presents for a one month follow-up assessment status post hemorrhoidectomy. Patient c/o; reports pain, reports constipation and is taking Colace x2 daily and Miralax, reports bright red blood with bowel movements. Screen Writer Required: No Accompanied by: Self / Same As Patient Allergies erythromycin base Allergy (Unknown, Verified 06/09/23 10:11) Diarrhea penicillin V Allergy (Unknown, Verified 06/09/23 10:11) hives HPI S/P hemorrhoidectomy, 1 mo follow up HPI Details She is here for a follow-up after hemorrhoidectomy last April,. I had seen her for postop visit a month ago and she still has some residual edema so I had asked her to see me again after a month. She has has this problem of chronic constipation and states that she of occasionally has to take MiraLax. She has had some with BMs as well so continues to have some swelling of the hemorrhoidectomy site. She denies seeing blood per rectum. [facility] Medical History Osteoarthritis Cellulitis of index finger Physical exam Internal and external prolapsed hemorrhoids Neck pain Migraines Surgical History History of hemorrhoidectomy H/O colonoscopy History of nasal surgery History of nasal polypectomy Family History Father Lung cancer Mother Lung cancer Sister Hemochromatosis Arthritis Brother In good health Daughter In good health Sister No problems noted. Sister No problems noted. Sister No problems noted. Social History Housing: House Alcohol intake: never Patient Tobacco Use Status: Never used Tobacco e-Cigarette/Vaping Use: Never Used Second Hand Smoke Exposure: Yes service: No Current occupational status: employed Current occupational exposures/hazards: No Cognitive needs: No Hearing needs: No Vision needs: Yes Review of Systems Const Denies chills and Denies fever(s) Card Denies chest pain Resp Denies cough Physical Exam Const General: comfortable and no acute distress Resp Effort & Inspection: normal respiratory effort GI Other: Rectal exam shows that her hemorrhoidectomy sites are actually well healed but she has edema of residual external hemorrhoids Assessment & Plan Assessment & Plan (1) Internal and external prolapsed hemorrhoids: Code(s): K64.8 - Other hemorrhoids Plan: Status post hemorrhoidectomy. Her protective sites are actually healed but she has edema of the rest of her external hemorrhoid. I have instructed her on continuing with hot Sitz baths or warm soaks. I emphasized to her the importance of having good control of her straining and constipation. She should probably increase her Metamucil to twice a day. She can take MiraLax every few days as well. I have given her samples of Calmoseptine for symptomatic relief of perianal burning. I will see her again in the office in about a month. Coding Level of Care Code Global (01773) Diagnoses Internal and external prolapsed hemorrhoids K64.8
[2023-06-09 10:04] VITALS: BP 101/55; PULSE 72; BMI 21.6
== END 2023-06-09 10:19 | disposition home or self-care (01) ==
PROVIDERS: PCP Internal Medicine; Visit Provider Surgery
DX: K64.8 Other hemorrhoids (principal)
CPT/HCPCS: 99024

== ENCOUNTER → 2023-06-09 09:51 | Outpatient (BNVA) | payer OTHER, SELFPAY | PROVIDERS: PCP Internal Medicine; Visit Provider Surgery ==

== ENCOUNTER 2023-06-16 14:16 | Outpatient (REF) | payer OTHER, SELFPAY ==
--- NOTE | ~2023-06-16 | US_ITS ---
EXAMINATION: MM DIAGNOSTIC DIGITAL BREAST TOMOSYNTHESIS, RIGHT US BREAST LIMITED, RIGHT MAMMOGRAPHY: CLINICAL INFORMATION: 52-year-old female complaining of new palpable abnormality right breast in lateral periareolar region x4 months. COMPARISON: Mammography: 01/29/2023, 12/02/2021, 12/20/2020, 10/27/2019, 07/22/2018. TECHNIQUE: Digital breast tomosynthesis is performed in both the craniocaudal and mediolateral oblique views along with computer-aided detection (CAD). Synthesized 2D images are generated from the tomosynthesis. FINDINGS: The breasts are heterogeneously dense, which may obscure small masses (ACR BI-RADS breast composition Category c). Within the slightly lateral periareolar region of the right breast, there is an irregular mass measuring approximately 1.9 x 1.5 x 1.7 cm on mammography. It is isodense with poorly marginated borders. It correlates well with the region of palpable concern. This will be evaluated by ultrasound. No additional abnormalities noted in the right breast. ULTRASOUND: CLINICAL INFORMATION: 52-year-old female complaining of new palpable abnormality right breast in lateral periareolar region x4 months. COMPARISON: None relevant. TECHNIQUE: Targeted sonographic evaluation was performed using a high frequency linear transducer. Attention to the periareolar region of the right breast was given. Selected archived documentation. FINDINGS: RIGHT BREAST: Correlating with the region of palpable concern, in the right breast 7:00 periareolar region, 1 cm from the nipple, there is a hypoechoic irregular marginated multilobulated vascular mass measuring 1.6 x 1.8 x 1.7 cm on ultrasound. There is good through transmission without shadowing. There appears to be some duct ectasia surrounding the abnormality. This is a suspicious abnormality and ultrasound-guided biopsy is recommended. Slightly more laterally in the 8:00 axis, 3 cm from the nipple, there is 0.8 x 0.7 x 0.6 cm circumscribed hypoechoic mass with good through transmission, no internal color Doppler flow, and may or may not be related to the index lesion in the palpable periareolar region. This has more typical appearance for a fibroadenoma. This is also a suspicious abnormality given the index lesion, and ultrasound-guided biopsy is recommended. US/US breast RT limited mamm only IMPRESSION: Ultrasound guided biopsy recommended for periareolar mass 7:00 axis, 1 cm from the nipple. Ultrasound-guided biopsy recommended for slightly lateral 7 mm mass at the 8:00 axis, 3 cm from the nipple. Findings and recommendations were discussed in with the patient in detail, who appears to understand the significance of the findings and recommendations. OVERALL ASSESSMENT: Mammography: BI-RADS 4 - Suspicious finding Ultrasound: BI-RADS 4 - Suspicious finding RECOMMENDATION: Biopsy recommended Biopsy will be 2 site right side. This patient's information was entered into a reminder system with a target due date for their next mammogram.
== END 2023-06-16 14:17 | disposition home or self-care (01) ==
LOC: HO.MAMMO 14:16
PROVIDERS: PCP Internal Medicine; Visit Provider Internal Medicine
DX: N63.15 Unspecified lump in the right breast, overlapping quadrants (principal)
CPT/HCPCS: 76642; 77061; 77065

== ENCOUNTER → 2023-06-16 14:30 | Outpatient (BNV) | payer OTHER, SELFPAY | PROVIDERS: PCP Internal Medicine; Visit Provider Radiology Diagnostic Radiology | DX: R92.331 Mammographic heterogeneous density, right breast (principal); N63.0 Unspecified lump in unspecified breast | CPT/HCPCS: 76642; 77061; 77065 ==

== ENCOUNTER 2023-06-23 08:29 | Outpatient (AMB) | payer OTHER, SELFPAY ==
--- NOTE | 2023-06-23 08:31 | A.OFFVIS_ITS ---
Intake Vital Signs 06/23/23 08:40 Height 5 ft 3 in Weight 122 lb BMI 21.6 BP 113/66 Blood Pressure Location Rt brachial Position Sitting Pulse 68 Intake Visit Reasons: US guided Bx Rt breast x2 areas Intake Note: This patient presents for an assessment for Ultrasound guided biopsy for right breast x2 areas, Patient c/o; reports lump rt breast, reports occasional soreness. 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 Accompanied by: Self / Same As Patient Allergies erythromycin base Allergy (Unknown, Verified 06/09/23 10:11) Diarrhea penicillin V Allergy (Unknown, Verified 06/09/23 10:11) hives Medication List - Last Reviewed 06/23/23 by JO-ANN Dodson cholecalciferol (vitamin D3) 50 mcg PO DAILY 90 days docusate sodium (Colace) 100 mg PO BID docusate sodium (Colace) 100 mg PO BID ibuprofen 600 mg PO Q6H PRN lidocaine 5% 1 appl topical TID PRN lutein 10 mg PO DAILY oxycodone-acetaminophen 5-325 mg (Percocet) 1 tab PO Q4-6H PRN sumatriptan succinate 50 mg PO Q2-4H PRN 30 days HPI US guided Bx Rt breast x2 areas HPI Details 52-year-old female referred for right br east mass. She says that about mass on the right breast what she was changing her clothes. She states that this was tender and painful periodically. She was therefore sent for a mammogram by her primary care physician.She had a mammogram and ultrasound showing a multilobulated hypoechoic irregular mass at the 07:00 o'clock periareolar region, measuring 1.6 x 1.8 x 1.7 cm. Also, lateral to this at the 8 o'clock position is note of circumscribed hypoechoic mass, 0.8 x 0.7 x 0.6 cm that appears to be a fibroadenoma. Ultrasound biopsy of both areas of the right breast had been recommended by the radiologist. She actually had a mammogram done last Jan, 2023 which was unremarkable. Her menarche was at age of 15. Her 1st was at age of 32. She had 1 . She is perimenopausal at this time with irregular periods. She denies any family history of breast cancer [facility] Medical History Osteoarthritis Cellulitis of index finger Physical exam Internal and external prolapsed hemorrhoids Neck pain Migraines Surgical History History of hemorrhoidectomy H/O colonoscopy History of nasal surgery History of nasal polypectomy Family History Father Lung cancer Mother Lung cancer Sister Hemochromatosis Arthritis Brother In good health Daughter In good health Sister No problems noted. Sister No problems noted. Sister No problems noted. Social History Housing: House Alcohol intake: never Patient Tobacco Use Status: Never used Tobacco e-Cigarette/Vaping Use: Never Used Second Hand Smoke Exposure: Yes service: No Current occupational status: employed Current occupational exposures/hazards: No Cognitive needs: No Hearing needs: No Vision needs: Yes Female Reproductive History Menstrual Age of Menarche: 15 Total pregnancies: 1 Review of Systems Const Denies chills and Denies fever(s) Card Denies chest pain, Denies dyspnea and Denies dyspnea on exertion Resp Denies cough, Denies dyspnea and Denies dyspnea on exertion GI Denies hematochezia and Denies change in bowel habits Denies hematuria Musc Denies back pain and Denies limited range of motion Neuro Denies focal weakness and Denies convulsions Psych Denies depression and Denies mood swings Physical Exam Const General: comfortable and no acute distress Orientation/consciousness: patient oriented x3 Neck Neck: Yes no lymphadenopathy Resp Auscultation: clear to auscultation bilaterally Cardio Rhythm: regular rhythm GI Palpation (GI): Soft to palpation, nontender and no guarding Neuro General: patient oriented x3 Assessment & Plan Assessment & Plan (1) Breast mass, right: Comment: At 6 o'clock Code(s): N63.10 - Unspecified lump in the right breast, unspecified quadrant Qualifiers: Breast mass location: subareolar Qualified Code(s): N63.41 - Unspecified lump in right breast, subareolar Plan: She has 2 breast masses seen on mammogram and ultrasound as described above. Ultrasound-guided biopsy has been recommended for both lesions. I explained to the technique of this procedure. I will see her again next week to discuss the path report. Orders: Orders US breast ndl core biopsy RT 06/22/23 N63.10 - Unspecified lump in the right breast, unspecified quadrant US breast ndl core bio ea add 06/22/23 N63.10 - Unspecified lump in the right breast, unspecified quadrant Coding Level of Care Code Est Pt Level 3 (91842) Diagnoses Subareolar mass of right breast N63.41 Breast mass location: subareolar
[2023-06-23 08:40] VITALS: BP 113/66; PULSE 68; BMI 21.6
== END 2023-06-23 08:53 | disposition home or self-care (01) ==
PROVIDERS: PCP Internal Medicine; Visit Provider Surgery
DX: N63.41 Unspecified lump in right breast, subareolar (principal)
CPT/HCPCS: 99213

== ENCOUNTER → 2023-06-23 08:29 | Outpatient (BNVA) | payer OTHER, SELFPAY | PROVIDERS: PCP Internal Medicine; Visit Provider Surgery | DX: N63.10 Unspecified lump in the right breast, unspecified quadrant (principal) ==

== ENCOUNTER 2023-06-24 07:58 | Outpatient (REF) | payer OTHER, SELFPAY ==
--- NOTE | ~2023-06-24 | US_ITS ---
PROCEDURE: US GUIDED BREAST BIOPSY, right breast, 3 sites CLINICAL INFORMATION: Suspicious masses seen subareolar right breast 7:00 axis, 8:00 axis 3cm from the nipple, and abnormal lymph node right lower axilla with thickened cortex and loss of normal fatty hilum; All recommended for biopsy. COMPARISON: 06/16/2023 mammography and ultrasound. 12/30/2022 mammogram, as well as 12/06/2021, 12/20/2020, 10/27/2019, and exams dating back to 2013. PROCEDURAL DETAILS: The details of the procedure, as well as the risks, benefits, and alternatives to the procedure were explained to the patient in detail and all of her questions were answered, after which written informed consent was obtained. Sites and side were confirmed. SITE A: Prior to the procedure, sonography revealed a hypoechoic irregular multilobulated vascular mass measuring 1.6 x 1.8 x 1.7 cm, 7:00 axis, periareolar region. A time-out was performed, the lesion intended for biopsy was targeted, and the skin of the right breast was then marked prepped and draped in the usual sterile fashion. Using sonographic guidance, sterile technique, and 1% lidocaine without epinephrine for local anesthesia, multiple core biopsies were obtained through the targeted area with a 14G spring loaded Achieve core biopsy device. There was real-time confirmation of appropriate needle passage. Sampling was documented. At the completion of tissue sampling, a single butterfly shaped metallic clip was deposited at the biopsy site. SITE B: Prior to the procedure, sonography revealed a barbell shaped hypoechoic mass measuring approximately 0.8 x 0.7 x 0.6 cm, 8:00 axis, 3 cm from the nipple. A time-out was performed, the lesion intended for biopsy was targeted, and the skin of the right breast was then marked, prepped and draped in the usual sterile fashion. Using sonographic guidance, sterile technique, and 1% lidocaine without epinephrine for local anesthesia, multiple core biopsies were obtained through the targeted area with a 14G spring loaded Achieve core biopsy device. There was real-time confirmation of appropriate needle passage. Sampling was documented. At the completion of tissue sampling, a single open coil metallic clip was deposited at the biopsy site. SITE C: Prior to the procedure, sonography revealed a low axillary right lymph node with cortex measuring 4.4 mm, and loss of fatty hilum. A time-out was performed, the lesion intended for biopsy was targeted, and the skin of the right axilla was then prepped and draped in the usual sterile fashion. Using sonographic guidance, sterile technique, and 1% lidocaine without epinephrine for local anesthesia, multiple core biopsies were obtained through the targeted area with a 14G spring loaded Achieve core biopsy device. There was real-time confirmation of appropriate needle passage. Sampling was documented. At the completion of tissue sampling, a single barrel shaped metallic clip was deposited at the biopsy site. There was no evidence of immediate complication. SPECIMEN: An appropriate sample was obtained from each site, with minimum of 3 cores. DIGITAL POST-PROCEDURE MAMMOGRAPHY: Breast density: The tissue is heterogeneously dense which may obscure small masses. BI-RADS version 5, category C. There are no new mammographic findings demonstrated. The postprocedure 3-view direct digital mammogram reveals satisfactory and accurate positioning of all 3 biopsy clips, with no evidence of hematoma present. The patient tolerated the procedure well and, after assuring adequate hemostasis, was discharged in good condition after reviewing postbiopsy breast care instructions. Final pathology results are pending. US/US breast ndl core bio ea add IMPRESSION: 1. No immediate complication from ultrasound-guided percutaneous 2 site biopsy right breast, and 1 site right axillary lymph node. 2. Ultrasound was used to localize and guide marker clip placements. 3. The 3-view direct digital postprocedure mammogram reveals satisfactory and accurate positioning of the biopsy clips. 4. Final pathology results are pending. A separate report with final recommendations will be issued once these results are made available.
[2023-06-24] MEDS: Lidocaine HCl 1 % 20 ML VIAL 18 ML SUBCUT (13:04)
[2023-06-24] MEDS: Sodium Bicarbonate 8.4% 50 MEQ/50 ML VIAL SUBCUT (13:09)
== END 2023-06-24 07:59 | disposition home or self-care (01) ==
LOC: HO.MAMMO 07:58
PROVIDERS: PCP Internal Medicine; Visit Provider Surgery
DX: N63.41 Unspecified lump in right breast, subareolar (principal); N63.13 Unspecified lump in the right breast, lower outer quadrant
CPT/HCPCS: 19083; 19084; 19286; 77062; 77065; 88305; 88341; 88342; 88360; A4648

== ENCOUNTER → 2023-06-24 08:01 | Outpatient (BNV) | payer OTHER, SELFPAY | PROVIDERS: PCP Internal Medicine; Visit Provider Radiology Diagnostic Radiology | DX: D05.11 Intraductal carcinoma in situ of right breast (principal); R92.321 Mammographic fibroglandular density, right breast | CPT/HCPCS: 19083; 19084; 77065 ==

== ENCOUNTER 2023-06-30 11:21 | Outpatient (AMB) | payer OTHER, SELFPAY ==
--- NOTE | 2023-06-30 11:22 | MHC.OFFVIS ---
Intake Intake Visit Reasons: Rt breast mass x3 areas, biopsy results Intake Note: This patient presents for a follow-up assessment for breast biopsy results. Patient c/o; reports no changes. Supervisor Smoke Control Required: No Accompanied by: Family/Other Allergies erythromycin base Allergy (Unknown, Verified 06/30/23 11:25) Diarrhea penicillin V Allergy (Unknown, Verified 06/30/23 11:25) hives Medication List - Last Reconciled 06/30/23 by Seb Martinez MD cholecalciferol (vitamin D3) 50 mcg PO DAILY 90 days docusate sodium (Colace) 100 mg PO BID docusate sodium (Colace) 100 mg PO BID ibuprofen 600 mg PO Q6H PRN lidocaine 5% 1 appl topical TID PRN lutein 10 mg PO DAILY oxycodone-acetaminophen 5-325 mg (Percocet) 1 tab PO Q4-6H PRN sumatriptan succinate 50 mg PO Q2-4H PRN 30 days HPI Rt breast mass x3 areas, biopsy results HPI Details 52-year-old female here for follow-up after right breast biopsy last week for a right breast mass. She says that about mass on the right breast what she was changing her clothes a few weeks ago. She states that this was tender and painful periodically. She was therefore sent for a mammogram by her primary care physician.She had a mammogram and ultrasound showing a multilobulated hypoechoic irregular mass at the 07:00 o'clock periareolar region, measuring 1.6 x 1.8 x 1.7 cm. Also, lateral to this at the 8 o'clock position is note of circumscribed hypoechoic mass, 0.8 x 0.7 x 0.6 cm that appears to be a fibroadenoma. Ultrasound biopsy of both areas of the right breast had been done by the radiologist and she is here to discuss the path report. She says she tolerated the biopsy well. She denies any significant complaints except for some bruising. She actually had a mammogram done last Jan, 2023 which was unremarkable. [facility] Medical History Invasive ductal carcinoma of breast Osteoarthritis Cellulitis of index finger Physical exam Internal and external prolapsed hemorrhoids Neck pain Migraines Surgical History History of hemorrhoidectomy H/O colonoscopy History of nasal surgery History of nasal polypectomy Family History Father Lung cancer Mother Lung cancer Sister Hemochromatosis Arthritis Brother In good health Daughter In good health Sister No problems noted. Sister No problems noted. Sister No problems noted. Social History Housing: House Alcohol intake: never Patient Tobacco Use Status: Never used Tobacco e-Cigarette/Vaping Use: Never Used Second Hand Smoke Exposure: Yes service: No Current occupational status: employed Current occupational exposures/hazards: No Cognitive needs: No Hearing needs: No Vision needs: Yes Female Reproductive History Menstrual Age of Menarche: 15 Review of Systems Const Denies chills and Denies fever(s) Card Denies chest pain, Denies dyspnea and Denies dyspnea on exertion Resp Denies cough, Denies dyspnea and Denies dyspnea on exertion GI Denies hematochezia and Denies change in bowel habits Denies hematuria Musc Denies back pain and Denies limited range of motion Neuro Denies focal weakness and Denies convulsions Psych Denies depression and Denies mood swings Physical Exam Const General: comfortable and no acute distress Orientation/consciousness: patient oriented x3 Neck Neck: Yes no lymphadenopathy Chest Other: Ecchymosis on the biopsy sites on the breast, inferior aspect as well as on the axilla Resp Auscultation: clear to auscultation bilaterally Cardio Rhythm: regular rhythm GI Palpation (GI): Soft to palpation, nontender and no guarding Neuro General: patient oriented x3 Assessment & Plan Assessment & Plan (1) Invasive ductal carcinoma of breast: Code(s): C50.919 - Malignant neoplasm of unspecified site of unspecified female breast Plan: There were 2 areas of the right breast that were biopsied. One was at the 7 o'clock position and the 2nd 1 was at the 8 o'clock position. Unfortunately, both sides showed invasive ductal carcinoma. One axillary lymph node was proceed as well but this was benign. I therefore had a long discussion with the patient about the next step. I told her the option of breast conservation therapy with lumpectomy and sentinel biopsy followed by radiation to the breast. I also told her brought option which would be mastectomy with sentinel node biopsy. I explained the risks, benefits, advantage and disadvantage of each procedure. She understands the option of reconstructive surgery as well. I also explained to her that I have sent a referral for her to be seen by Oncology Service. She says that she has made up her mind this time that she is going for a full mastectomy. She then had a discussion with her and another family member in the room. After discussing among themselves, they said that the have decided that they will go to [facility] to undergo treatment there instead of here in [facility].. They did ask for assistance with regards to being referred there. She says she will continue to see me for her hemorrhoid issues. As a matter fact, she says that she is scheduled to see him again in about 2 weeks. Orders: Referrals Hematology & Oncology Referral C50.919 - Malignant neoplasm of unspecified site of unspecified female breast Coding Level of Care Code Est Pt Level 4 (66345) Diagnoses Invasive ductal carcinoma of breast C50.919
== END 2023-06-30 11:58 | disposition home or self-care (01) ==
PROVIDERS: PCP Internal Medicine; Visit Provider Surgery
DX: C50.511 Malignant neoplasm of lower-outer quadrant of right female breast (principal)
CPT/HCPCS: 99214

== ENCOUNTER → 2023-06-30 11:21 | Outpatient (BNVA) | payer OTHER, SELFPAY | PROVIDERS: PCP Internal Medicine; Visit Provider Surgery | DX: N63.10 Unspecified lump in the right breast, unspecified quadrant (principal); N63.41 Unspecified lump in right breast, subareolar; C50.919 Malignant neoplasm of unspecified site of unspecified female breast ==

== ENCOUNTER 2023-07-11 11:26 | Outpatient (AMB) | payer OTHER, SELFPAY ==
[2023-07-11 11:30] VITALS: BP 115/74; PULSE 65; BMI 21.6
--- NOTE | 2023-07-11 11:30 | MHC.OFFVIS ---
Intake Vital Signs 07/11/23 11:30 Height 5 ft 3 in Weight 122 lb BMI 21.6 BP 115/74 Blood Pressure Location Rt brachial Position Sitting Pulse 65 Intake Visit Reasons: S/P hemorrhoidectomy, 1 mo follow up Intake Note: This patient presents for a one month follow-up assessment status post hemorrhoidectomy. 05/03/23.* Patient c/o; reports no complaints at this time. Mortgage Manager Required: No Accompanied by: Self / Same As Patient Allergies erythromycin base Allergy (Unknown, Verified 07/11/23 11:41) Diarrhea penicillin V Allergy (Unknown, Verified 07/11/23 11:41) hives HPI S/P hemorrhoidectomy, 1 mo follow up HPI Details She is here for a follow-up after hemorrhoidectomy last April,. She says that she had been doing well last week and denied any problems with her hemorrhoidectomy site. However, she became constipated over the weekend and says that he noticed some swelling again of summary hemorrhoids She otherwise denies other complaints. She is scheduled to see a surgeon in [facility] this afternoon for her newly diagnosed breast cancer. She had decided to have this surgery done over there in [place]. [facility] Medical History Invasive ductal carcinoma of breast Osteoarthritis Cellulitis of index finger Physical exam Internal and external prolapsed hemorrhoids Neck pain Migraines Surgical History History of hemorrhoidectomy H/O colonoscopy History of nasal surgery History of nasal polypectomy Family History Father Lung cancer Mother Lung cancer Sister Hemochromatosis Arthritis Brother In good health Daughter In good health Sister No problems noted. Sister No problems noted. Sister No problems noted. Social History Housing: House Alcohol intake: never Patient Tobacco Use Status: Never used Tobacco e-Cigarette/Vaping Use: Never Used Second Hand Smoke Exposure: Yes service: No Current occupational status: employed Current occupational exposures/hazards: No Cognitive needs: No Hearing needs: No Vision needs: Yes Female Reproductive History Menstrual Age of Menarche: 15 Review of Systems Const Denies chills and Denies fever(s) Card Denies chest pain, Denies dyspnea and Denies dyspnea on exertion Resp Denies cough, Denies dyspnea and Denies dyspnea on exertion GI Denies hematochezia and Reports constipation Denies hematuria Musc Denies back pain and Denies limited range of motion Neuro Denies focal weakness and Denies convulsions Psych Denies depression and Denies mood swings Physical Exam Vital Signs: Last Vital Signs Pulse 65 07/11/23 11:30 BP 115/74 07/11/23 11:30 BMI result Body Mass Index 21.6 Const General: comfortable and no acute distress Resp Effort & Inspection: normal respiratory effort GI Other: Rectal exam shows edema of residual hemorrhoids, most external. Otherwise there is no bleeding, thrombosis Assessment & Plan Assessment & Plan (1) Internal and external prolapsed hemorrhoids: Code(s): K64.8 - Other hemorrhoids Plan: Status post hemorrhoidectomy. She does have some edema of residual hemorrhoids. She says this happened after she was constipated over the weekend I did excised to her the importance of avoiding straining and constipation. She says she continues to take her Metamucil. She should continue doing hot Sitz baths I will see her again in the office about 3 months In the meantime, she is to undergo month for her breast cancer in [facility]. Coding Level of Care Code Est Pt Level 2 (38971) Diagnoses Internal and external prolapsed hemorrhoids K64.8
== END 2023-07-11 11:49 | disposition home or self-care (01) ==
PROVIDERS: PCP Internal Medicine; Visit Provider Surgery
DX: K64.8 Other hemorrhoids (principal)
CPT/HCPCS: 99024

== ENCOUNTER → 2023-07-11 11:26 | Outpatient (BNVA) | payer OTHER, SELFPAY | PROVIDERS: PCP Internal Medicine; Visit Provider Surgery ==

== ENCOUNTER 2023-10-12 08:50 | Outpatient (AMB) | payer OTHER, SELFPAY ==
--- NOTE | 2023-10-12 09:08 | A.OFFVIS_ITS ---
Intake Vital Signs 10/12/23 09:10 Height 5 ft 3 in Weight 112 lb BMI 19.8 BP 102/62 Blood Pressure Location Rt brachial Position Sitting Pulse 76 Intake Visit Reasons: S/P hemorrhoidectomy, 3 mo follow up Intake Note: This patient presents for a three month follow-up assessment status post hemorrhoidectomy. Patient c/o; reports bleeding, reports swelling. Collar Trimmer Required: No Accompanied by: Self / Same As Patient Allergies erythromycin base Allergy (Unknown, Verified 07/11/23 11:41) Diarrhea penicillin V Allergy (Unknown, Verified 07/11/23 11:41) hives Medication List - Last Reconciled 10/12/23 by Seb Martinez MD cholecalciferol (vitamin D3) 50 mcg PO DAILY 90 days docusate sodium (Colace) 100 mg PO BID docusate sodium (Colace) 100 mg PO BID ibuprofen 600 mg PO Q6H PRN lidocaine 5% 1 appl topical TID PRN lutein 10 mg PO DAILY nitroglycerin 0.4%(w/w) (Rectiv) 1 inch ME BID oxycodone-acetaminophen 5-325 mg (Percocet) 1 tab PO Q4-6H PRN sennosides (senna) 8.6 mg PO DAILY sumatriptan succinate 50 mg PO Q2-4H PRN 30 days HPI S/P hemorrhoidectomy, 3 mo follow up HPI Details She had hemorrhoidectomy last April, and is here for a postop visit. She is undergoing neoadjuvant chemotherapy for right breast cancer in [facility]. She says that this has caused her some constipation and states that she has very regular bowel movements. She often has a lot of pain after bowel movement at lingers for 2 hours. She occasionally sees blood on wiping as well. She says she is this has been very uncomfortable. She says that often times she has to take MiraLax for several days whenever she is very constipated. [facility] Medical History (Updated 10/12/23 @ 09:33 by Seb Martinez MD) Anal pain Invasive ductal carcinoma of breast Osteoarthritis Cellulitis of index finger Physical exam Internal and external prolapsed hemorrhoids Neck pain Migraines Surgical History History of hemorrhoidectomy H/O colonoscopy History of nasal surgery History of nasal polypectomy Family History Father Lung cancer Mother Lung cancer Sister Hemochromatosis Arthritis Brother In good health Daughter In good health Sister No problems noted. Sister No problems noted. Sister No problems noted. Social History Housing: House Alcohol intake: never Patient Tobacco Use Status: Never used Tobacco e-Cigarette/Vaping Use: Never Used Second Hand Smoke Exposure: Yes service: No Current occupational status: employed Current occupational exposures/hazards: No Cognitive needs: No Hearing needs: No Vision needs: Yes Female Reproductive History Menstrual Age of Menarche: 15 Review of Systems Const Denies chills and Denies fever(s) Card Denies chest pain, Denies dyspnea and Denies dyspnea on exertion Resp Denies cough, Denies dyspnea and Denies dyspnea on exertion GI Reports hematochezia and Reports change in bowel habits Denies hematuria Musc Denies back pain and Denies limited range of motion Neuro Denies focal weakness and Denies convulsions Psych Denies depression and Denies mood swings Physical Exam Vital Signs: Last Vital Signs Pulse 76 10/12/23 09:10 BP 102/62 10/12/23 09:10 BMI result Body Mass Index 19.8 Const Other: Able to sit down comfortably General: comfortable and no acute distress Resp Effort & Inspection: normal respiratory effort Cardio Rate: regular rate GI Other: Rectal exam - she has visual external hemorrhoids, she has tenderness on the midline anteriorly and posteriorly with apparent hypertonicity of the sphincters. I would therefore did not proceed with digital exam her anoscopy Assessment & Plan Assessment & Plan (1) Anal pain: Code(s): K62.89 - Other specified diseases of anus and rectum Plan: She has severe anal pain after bowel movements. Exam and overall clinical p icture is suggestive of an anal fissure with hypertonicity of the sphincters I am going to put her on a trial of nitroglycerin ointment to the anal canal. I advised her to try to have more regularity of her bowel movements. She does have constipation and she says this has been worsened by her being on chemotherapy. I will see her again in the office in about 3-4 weeks to see how she is doing. Medications: New nitroglycerin 0.4%(w/w) (Rectiv) 1 inch ME BID 30 grams 0RF Coding Level of Care Code Est Pt Level 3 (77886) Diagnoses Anal pain K62.89
[2023-10-12 09:10] VITALS: BP 102/62; PULSE 76; BMI 19.8
== END 2023-10-12 09:30 | disposition home or self-care (01) ==
PROVIDERS: PCP Internal Medicine; Visit Provider Surgery
DX: K62.89 Other specified diseases of anus and rectum (principal)
CPT/HCPCS: 99213

== ENCOUNTER → 2023-10-12 08:50 | Outpatient (BNVA) | payer OTHER, SELFPAY | PROVIDERS: PCP Internal Medicine; Visit Provider Surgery ==

== ENCOUNTER 2023-11-02 10:19 | Outpatient (AMB) | payer OTHER, SELFPAY ==
--- NOTE | 2023-11-02 10:20 | A.OFFVIS_ITS ---
Intake Vital Signs 11/02/23 10:24 Height 5 ft 3 in Weight 112 lb BMI 19.8 BP 102/71 Blood Pressure Location Rt brachial Position Sitting Pulse 74 Intake Visit Reasons: S/P hemorrhoidectomy, 3 wk follow up Intake Note: This patient presents for a three week follow-up assessment status post hemorrhoidectomy. Pt c/o; reports no changes. 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 Accompanied by: Self / Same As Patient Allergies erythromycin base Allergy (Unknown, Verified 11/02/23 10:25) Diarrhea penicillin V Allergy (Unknown, Verified 11/02/23 10:25) hives Medication List - Last Reconciled 11/02/23 by Seb Martinez MD cholecalciferol (vitamin D3) 50 mcg PO DAILY 90 days docusate sodium (Colace) 100 mg PO BID docusate sodium (Colace) 100 mg PO BID ibuprofen 600 mg PO Q6H PRN lidocaine 5% 1 appl topical TID PRN lutein 10 mg PO DAILY nitroglycerin 0.4%(w/w) (Rectiv) 1 inch [place] BID oxycodone-acetaminophen 5-325 mg (Percocet) 1 tab PO Q4-6H PRN sennosides (senna) 8.6 mg PO DAILY sumatriptan succinate 50 mg PO Q2-4H PRN 30 days HPI S/P hemorrhoidectomy, 3 wk follow up HPI Details She says that her anal pain has improved significantly with Rectiv. However, she admits that her habits are still very inconsistent. She says sometimes she has multiple bowel movements in 1 day and this can vary from being well-formed to watery. She says she has actually set up an appointment with GI in [facility] next month. [facility] Medical History Anal pain Invasive ductal carcinoma of breast Osteoarthritis Cellulitis of index finger Physical exam Internal and external prolapsed hemorrhoids Neck pain Migraines Surgical History History of hemorrhoidectomy H/O colonoscopy History of nasal surgery History of nasal polypectomy Family History Father Lung cancer Mother Lung cancer Sister Hemochromatosis Arthritis Brother In good health Daughter In good health Sister No problems noted. Sister No problems noted. Sister No problems noted. Social History Housing: House Alcohol intake: never Patient Tobacco Use Status: Never used Tobacco e-Cigarette/Vaping Use: Never Used Second Hand Smoke Exposure: Yes service: No Current occupational status: employed Current occupational exposures/hazards: No Cognitive needs: No Hearing needs: No Vision needs: Yes Female Reproductive History Menstrual Age of Menarche: 15 Review of Systems Const Denies chills and Denies fever(s) Card Denies chest pain, Denies dyspnea and Denies dyspnea on exertion Resp Denies cough, Denies dyspnea and Denies dyspnea on exertion GI Details: Irregular bowel habits Denies hematochezia and Denies change in bowel habits Denies hematuria Musc Denies back pain and Denies limited range of motion Neuro Denies focal weakness and Denies convulsions Psych Denies depression and Denies mood swings Physical Exam Vital Signs: Last Vital Signs Pulse 74 11/02/23 10:24 BP 102/71 11/02/23 10:24 BMI result Body Mass Index 19.8 Const General: comfortable and no acute distress Resp Effort & Inspection: normal respiratory effort GI Other: Rectal exam - external hemorrhoids left and right, mild edema, no significant tenderness at this time, no induration Assessment & Plan Assessment & Plan (1) Anal pain: Code(s): K62.89 - Other specified diseases of anus and rectum Plan: She states that nitroglycerin has a lot with her pain. 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 I advised her to see if she can get off of the nitroglycerin soon as this may not as effective with continued use She is to see her engine cleaner next month as she complains of very irregular bowel habits. I will see her again in the office after her gastroenterology appointment. She seems to be comfortable with the plan. She does have residual external hemorrhoids. She says that these do not bother her at this time. Coding Level of Care Code Est Pt Level 2 (91000) Diagnoses Anal pain K62.89
[2023-11-02 10:24] VITALS: BP 102/71; PULSE 74; BMI 19.8
== END 2023-11-02 10:47 | disposition home or self-care (01) ==
PROVIDERS: PCP Internal Medicine; Visit Provider Surgery
DX: K62.89 Other specified diseases of anus and rectum (principal)
CPT/HCPCS: 99212

== ENCOUNTER → 2023-11-02 10:19 | Outpatient (BNVA) | payer OTHER, SELFPAY | PROVIDERS: PCP Internal Medicine; Visit Provider Surgery ==

== ENCOUNTER 2023-12-19 08:56 | Outpatient (AMB) | payer OTHER, SELFPAY ==
[2023-12-19 08:57] VITALS: BP 120/70; BMI 22.1
--- NOTE | 2023-12-19 08:57 | MHC.PC.OV ---
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 Accompanied by: Self / Same As Patient Allergies erythromycin base Allergy (Unknown, Verified 12/19/23 09:10) Diarrhea penicillin V Allergy (Unknown, Verified 12/19/23 09:10) hives Medication List - Last Reconciled 12/19/23 by Denise Rhodes MD cholecalciferol (vitamin D3) 50 mcg PO DAILY 90 days docusate sodium (Colace) 100 mg PO BID lidocaine 5% 1 appl topical TID PRN nitroglycerin 0.4%(w/w) (Rectiv) 1 inch [place] BID sumatriptan succinate 50 mg PO Q2-4H PRN 30 days Tobacco use date assessed: 12/19/23 Dental Screening Dental Screen Date: 12/19/23 Did you have a dental visit in the last 12 months?: No Did you have a dental problem in the last 6 months where you did not have access to dental care?: No Was dental information given to patient?: Patient has dentist HPI HPI Comments History of Present Illness Details This is a 53-year-old female that comes for her physical exam. Had a right breast lump in June 2023 which showed 2 right suspicious breast mass in diagnostic mammogram of June 2023 in which biopsy resulted in invasive ductal carcinoma of the breast. 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 She is inclined to have a mastectomy due to her genetic mutation. She follows at [facility] and she is prison through the cycles of chemotherapy. Last colonoscopy was 2022. Pap smears are up-to-date. Anal pain has improved with MiraLax on a daily basis. No chest pain or shortness of breath. [facility] Medical History (Updated 12/19/23 @ 11:56 by Denise Rhodes MD) Physical exam Anal pain Invasive ductal carcinoma of breast Osteoarthritis Cellulitis of index finger Internal and external prolapsed hemorrhoids Neck pain Migraines Surgical History History of hemorrhoidectomy H/O colonoscopy History of nasal surgery History of nasal polypectomy Family History (Updated 12/19/23 @ 09:16 by Denise Rhodes MD) Father Lung cancer Mother Lung cancer Sister Hemochromatosis Arthritis Brother In good health Daughter In good health Sister No problems noted. Sister No problems noted. Sister No problems noted. Social History Housing: House Alcohol intake: never Patient Tobacco Use Status: Never used Tobacco e-Cigarette/Vaping Use: Never Used Second Hand Smoke Exposure: Yes service: No Current occupational status: employed Current occupational exposures/hazards: No Cognitive needs: No Hearing needs: No Vision needs: Yes Female Reproductive History Menstrual Age of Menarche: 15 Questionnaire PHQ-9 Over the last 2 weeks, how often have you been bothered by any of the following problems? 1. Little interest or pleasure in doing things: not at all 2. Feeling down, depressed, or hopeless: not at all 3. Trouble falling or staying asleep, or sleeping too much: not at all 4. Feeling tired or having little energy: not at all 5. Poor appetite or overeating: not at all 6. Feeling bad about yourself - or that you are a failure or have let yourself or your family down: not at all 7. Trouble concentrating on things, such as reading the newspaper or watching television: not at all 8. Moving or speaking so slowly that other people could have noticed. Or the opposite - being so fidgety or restless that you have been moving around a lot more than usual: not at all 9. Thoughts that you would be better off or of hurting yourself in some way: not at all Total score: 0 Depression Screening Interpretation: Negative Depression Screening Done: Yes [id number] - PHQ-9 Billing: Yes Source: Developed by Drs. Kevin Ruelas, Paola Isaac, Acosta Larkin and colleagues, with an educational jason from [employer]. Thrive Questionnaire Date Thrive assessed: 12/19/23 I am a: Patient What is your living situation today?: I have a steady place to live Within the past 12 months, did the food you bought not last and you didn't have the money to get more?: Never true Within the past 12 months, did you worry whether your food would run out before you got money to buy more?: Never true Do you have trouble paying for medicines?: No Do you have trouble getting transportation to medical appointments?: No Do you have trouble paying your heating and electricity bill?: No Do you have trouble taking care of your child, family member or friend?: No Do you have trouble with day-to-day activities such as bathing, preparing meals, shopping, managing finances, etc.?: No Are you currently unemployed and looking for a job?: No Are you interested in more education?: No Please select the resources that you would like help with: None Currently or been in a relationship where the following occur: no concerns reported THRIVE Score: 0 AUDIT C Alcohol Use Questionnaire (AUDIT-C) 1. How often do you have a drink containing alcohol?: Never Total Score: 0 GREGG-7 AMB Questionnaire GREGG-7 Date GREGG - 7 assessed: 12/19/23 Feeling nervous, anxious, or on edge: 0 = Not at all Not being able to stop or control worryin = Not at all Worrying too much about different things: 0 = Not at all Trouble relaxin = Not at all Being so restless that it is hard to sit still: 0 = Not at all Becoming easily annoyed or irritable: 0 = Not at all Feeling afraid as if something awful might happen: 0 = Not at all Total GREGG-7 score (0-4 normal; 5-9 mild; 10-14 moderate; 15-21 severe): 0 Source: Developed by Drs. Kevin Ruelas, Paola Isaac, Acosta Larkin and colleagues, with an educational jason from [employer]. Review of Systems Const All systems reviewed & are unremarkable except as noted in HPI and below Eyes Reports no additional complaints, Denies change in vision and Denies other visual disturbances Card Denies chest pain at rest, Denies chest pain with activity, Denies edema, Denies irregular heart rhythm, Denies claudication, Denies dyspnea, Denies dyspnea on exertion, Denies orthopnea, Denies paroxysmal nocturnal dyspnea and Denies slow heart rate Resp Denies cough, Denies dyspnea and Denies dyspnea on exertion Physical exam (Primary Care) Vital Signs: Last Vital Signs BP 120/70 12/19/23 08:57 BMI result Body Mass Index 22.1 Tobacco/Smoking Status: Tobacco use Status Tobacco use date assessed 12/19/23 12/19/23 09:06 Patient Tobacco Use Status Never used Tobacco 12/19/23 09:06 e-Cigarette/Vaping Use Never Used 12/19/23 09:06 PHQ-9: PHQ-9 Score PHQ-9: Total score 0 12/19/23 09:20 Depression Screening Interpretation: Negative Thrive Assessment: Date of Thrive Assessment Date Thrive assessed 12/19/23 12/19/23 09:10 Currently or been in a relationship where the following occur: no concerns reported Const Orientation/consciousness: patient oriented x3 HENMT Head: Yes normal to inspection, Yes normocephalic and Yes atraumatic Ears: external ears normal Resp Effort & Inspection: normal respiratory effort Auscultation: clear to auscultation bilaterally Cardio Jugular venous distension: no JVD Rate: regular rate Rhythm: regular rhythm Heart sounds: S1 normal heart sound present and S2 normal heart sound present GI Inspection: Yes normal to inspection Palpation (GI): Soft to palpation and nontender Auscultation: normal bowel sounds Skin General skin exam: no rashes or lesions noted Neuro General: patient oriented x3 and no focal motor deficits Extrem General: Yes full ROM Psych Appearance: grossly normal Assessment and Plan Assessment & Plan (1) Physical exam: Code(s): Z00.00 - Encounter for general adult medical examination without abnormal findings Plan: Repeat in a year. (2) Invasive ductal carcinoma of breast: Code(s): C50.919 - Malignant neoplasm of unspecified site of unspecified female breast Qualifiers: Laterality: right Qualified Code(s): C50.911 - Malignant neoplasm of unspecified site of right female breast Medications: Refilled cholecalciferol (vitamin D3) 50 mcg PO DAILY 90 days 90 caps 1RF Patient Instructions: Continue chemotherapy as per Oncology at [facility]. Coding Level of Care Code Est Pt Prev Care 40-64y(54883) Diagnoses Physical exam Z00.00 Infiltrating ductal carcinoma of right breast C50.911 Laterality: right Time Spent (min) 33
== END 2023-12-19 09:34 | disposition home or self-care (01) ==
PROVIDERS: PCP Internal Medicine; Visit Provider Internal Medicine
DX: Z00.00 Encounter for general adult medical examination without abnormal findings (principal); C50.911 Malignant neoplasm of unspecified site of right female breast
CPT/HCPCS: 99396

== ENCOUNTER 2023-12-26 11:22 | Outpatient (AMB) | payer OTHER, SELFPAY ==
--- NOTE | 2023-12-26 11:27 | A.OFFVIS_ITS ---
Vital Signs 12/26/23 11:34 Height 5 ft 3 in BP 130/79 Blood Pressure Location Rt brachial Position Sitting Pulse 59 Intake Visit Reasons: Anal pain, 2 mo follow up Intake Note: This patient presents for a two month follow-up for anal pain. Pt c/o; reports rectal bleeding after bowel movements, reports rectal pain. Cytopathologist Required: No Accompanied by: Self / Same As Patient Allergies erythromycin base Allergy (Unknown, Verified 12/26/23 11:34) Diarrhea penicillin V Allergy (Unknown, Verified 12/26/23 11:34) hives Medication List - Last Reconciled 12/26/23 by Seb Martinez MD cholecalciferol (vitamin D3) 50 mcg PO DAILY 90 days docusate sodium (Colace) 100 mg PO BID lidocaine 5% 1 appl topical TID PRN nitroglycerin 0.4%(w/w) (Rectiv) 1 inch [place] BID sumatriptan succinate 50 mg PO Q2-4H PRN 30 days HPI HPI Anal pain, 2 mo follow up: Details: She is here for follow-up for anal pain. I had placed her on Rectiv because of what I felt was hypertonicity of her sphincters. She says that she has improved significantly. She has stopped taking the rectum at this time She says that her bowel movements are much better as well and she does not have any pain that last a long time. She denies rectal bleeding. She currently is undergoing chemotherapy for her breast cancer. She says she feels tired frequently but otherwise has been tolerating this. [facility] Medical History Physical exam Anal pain Invasive ductal carcinoma of breast Osteoarthritis Cellulitis of index finger Internal and external prolapsed hemorrhoids Neck pain Migraines Surgical History History of hemorrhoidectomy H/O colonoscopy History of nasal surgery History of nasal polypectomy Family History Father Lung cancer Mother Lung cancer Sister Hemochromatosis Arthritis Brother In good health Daughter In good health Sister No problems noted. Sister No problems noted. Sister No problems noted. Social History Housing: House Alcohol intake: never Patient Tobacco Use Status: Never used Tobacco e-Cigarette/Vaping Use: Never Used Second Hand Smoke Exposure: Yes service: No Current occupational status: employed Current occupational exposures/hazards: No Cognitive needs: No Hearing needs: No Vision needs: Yes Female Reproductive History Menstrual Age of Menarche: 15 Review of Systems Const Denies chills, Denies fever(s) and Reports malaise Card Denies chest pain, Denies dyspnea and Denies dyspnea on exertion Resp Denies cough, Denies dyspnea and Denies dyspnea on exertion GI Denies hematochezia and Denies change in bowel habits Denies hematuria Musc Denies back pain and Denies limited range of motion Neuro Denies focal weakness and Denies convulsions Psych Denies depression and Denies mood swings Physical Exam Vital Signs: Last Vital Signs Pulse 59 12/26/23 11:34 BP 130/79 12/26/23 11:34 Const Other: Sitting down comfortably General: comfortable and no acute distress Resp Effort & Inspection: normal respiratory effort Cardio Rate: regular rate GI Other: Rectal exam - external hemorrhoids seen, no tenderness the anal verge, no obvious fissure, no induration, no swelling Assessment & Plan Assessment & Plan (1) Anal pain: Code(s): K62.89 - Other specified diseases of anus and rectum Category: Medical Plan: Her anal pain has resolved. She says that Rectiv helped a lot with this. She is not using Rectiv anymore at this time. I told her she is free to use this whenever she has recurrence down the line Her bowel movements are much better as well. I advised her to take Metamucil as well as regularity of bowel movements will be of great benefit She can follow up on a p.r.n. basis.
[2023-12-26 11:34] VITALS: BP 130/79; PULSE 59
== END 2023-12-26 11:54 | disposition home or self-care (01) ==
LOC: HO.HGS 11:22
PROVIDERS: PCP Internal Medicine; Visit Provider Surgery
DX: K62.89 Other specified diseases of anus and rectum (principal)
CPT/HCPCS: 99212

== ENCOUNTER → 2023-12-26 11:22 | Outpatient (BNVA) | payer OTHER, SELFPAY | PROVIDERS: PCP Internal Medicine; Visit Provider Surgery ==

== ENCOUNTER 2024-12-24 08:28 | Outpatient (AMB) | payer OTHER, SELFPAY ==
--- NOTE | 2024-12-24 08:30 | MHC.PC.OV ---
Vital Signs 12/24/24 08:32 Height 5 ft 3 in Weight 122 lb BMI 21.6 BP 118/70 Blood Pressure Location Lt brachial Position Sitting Intake Visit Reasons: PE Intake Note: Patient here for a physical exam Front Desk Supervisor Required: No Accompanied by: Self / Same As Patient Allergies cephalexin Allergy (Intermediate, Verified 12/24/24 08:52) hives erythromycin base Allergy (Unknown, Verified 12/24/24 08:46) Diarrhea penicillin V Allergy (Unknown, Verified 12/24/24 08:46) hives Medication List - Last Reconciled 12/24/24 by Denise Rhodes MD cholecalciferol (vitamin D3) 50 mcg PO DAILY 90 days docusate sodium (Colace) 100 mg PO BID levothyroxine 100 mcg PO DAILY lidocaine 5% 1 appl topical TID PRN nitroglycerin 0.4%(w/w) (Rectiv) 1 inch LA BID sumatriptan succinate 50 mg PO Q2-4H PRN 30 days Tobacco use date assessed: 12/24/24 Dental Screening Dental Screen Date: 12/24/24 Did you have a dental visit in the last 12 months?: Yes Did you have a dental problem in the last 6 months where you did not have access to dental care?: No Was dental information given to patient?: Patient has dentist HPI HPI Comments History of Present Illness Details The patient is a 54-year-old female presenting for a physical examination to review her ongoing health maintenance and current medical issues, particularly focusing on the aftermath of her cancer treatments and post-operative management. The patient underwent a colonoscopy in 2022, which resulted in normal findings, with a follow-up recommended in 10 years. Her vaccine records indicated an absence of a tetanus booster, but she declined vaccination today due to recovery from chemotherapy, suggesting re-evaluation in six months alongside her flu shot. The patient underwent a bilateral mastectomy in 2023, following a diagnosis of basal ductal carcinoma of the breast, triple-negative. She later received breast reconstruction surgery in September 2024. She also underwent a salpingo-oophorectomy in August 2024. Notably, she indicates complications following a hemorrhoidectomy, resulting in persistent pain and plans to consult a colorectal surgeon due to continued discomfort despite her dietary management. Chemotherapy was completed in February 2024, with immunotherapy finishing in October. The patient reports significant side effects related to immunotherapy, including dry mouth, vision changes, and gastrointestinal distress. Increased hair growth post-therapy is noted. Allergies include erythromycin, penicillin, and cephalexin, all causing hives. The patient is managing migraines and hypothyroidism with sumatriptan and levothyroxine respectively, having recently increased her levothyroxine dose to 100 mcg. Her thyroid levels have remained stable. - Colonoscopy: Normal in 2022, follow-up in 2032 - Tetanus vaccination overdue; declined today, re-assess in six months - Mammography not applicable post-mastectomy - Pap smear conducted September 2023 - Salpingo-oophorectomy undertaken August 2024 - Breast reconstruction September 2024 - Allergy management: Avoidance advised for erythromycin, penicillin, cephalexin - Immunotherapy side effects noted [facility] Medical History Physical exam Anal pain Invasive ductal carcinoma of breast Osteoarthritis Cellulitis of index finger Internal and external prolapsed hemorrhoids Neck pain Migraines Surgical History History of breast reconstruction History of bilateral mastectomy History of salpingo-oophorectomy History of hemorrhoidectomy H/O colonoscopy History of nasal surgery History of nasal polypectomy Family History Father Lung cancer Mother Lung cancer Sister Hemochromatosis Arthritis Brother In good health Daughter In good health Sister No problems noted. Sister No problems noted. Sister No problems noted. Social History Housing: House Alcohol intake: never Patient Tobacco Use Status: Never used Tobacco e-Cigarette/Vaping Use: Never Used Second Hand Smoke Exposure: Yes service: No Current occupational status: employed Current occupational exposures/hazards: No Cognitive needs: No Hearing needs: No Vision needs: Yes Female Reproductive History Menstrual Age of Menarche: 15 Questionnaire PHQ-9 Over the last 2 weeks, how often have you been bothered by any of the following problems? 1. Little interest or pleasure in doing things: not at all 2. Feeling down, depressed, or hopeless: not at all 3. Trouble falling or staying asleep, or sleeping too much: several days 4. Feeling tired or having little energy: not at all 5. Poor appetite or overeating: not at all 6. Feeling bad about yourself - or that you are a failure or have let yourself or your family down: not at all 7. Trouble concentrating on things, such as reading the newspaper or watching television: not at all 8. Moving or speaking so slowly that other people could have noticed. Or the opposite - being so fidgety or restless that you have been moving around a lot more than usual: not at all 9. Thoughts that you would be better off or of hurting yourself in some way: not at all Total score: 1 Depression Screening Interpretation: Negative Depression Screening Done: Yes 27148 - PHQ-9 Billing: Yes Source: Developed by Drs. Kevin Ruelas, Paola Isaac, Acosta Larkin and colleagues, with an educational jason from [employer]. Thrive Questionnaire Date Thrive assessed: 12/24/24 I am a: Patient What is your living situation today?: I have a steady place to live Within the past 12 months, did the food you bought not last and you didn't have the money to get more?: Never true Within the past 12 months, did you worry whether your food would run out before you got money to buy more?: Never true Do you have trouble paying for medicines?: No Do you have trouble getting transportation to medical appointments?: No Do you have trouble paying your heating and electricity bill?: No Do you have trouble taking care of your child, family member or friend?: No Do you have trouble with day-to-day activities such as bathing, preparing meals, shopping, managing finances, etc.?: No Are you currently unemployed and looking for a job?: No Are you interested in more education?: No Please select the resources that you would like help with: None Currently or been in a relationship where the following occur: No concerns reported THRIVE Score: 0 AUDIT C Alcohol Use Questionnaire (AUDIT-C) 1. How often do you have a drink containing alcohol?: Never Total Score: 0 Score Reviewed/Action Taken: No GREGG-7 AMB Questionnaire GREGG-7 Date GREGG - 7 assessed: 12/24/24 Feeling nervous, anxious, or on edge: 1 = Several days Not being able to stop or control worryin = Not at all Worrying too much about different things: 1 = Several days Trouble relaxin = Not at all Being so restless that it is hard to sit still: 0 = Not at all Becoming easily annoyed or irritable: 0 = Not at all Feeling afraid as if something awful might happen: 0 = Not at all Total GREGG-7 score (0-4 normal; 5-9 mild; 10-14 moderate; 15-21 severe): 2 Source: Developed by Drs. Kevin Ruelas, Paola Isaac, Acosta Larkin and colleagues, with an educational jason from [employer]. GREGG-7 Assessment Billing GREGG-7 Assessment Tool: GREGG-7 Assessment 65749 Review of Systems Const All systems reviewed & are unremarkable except as noted in HPI and below Card Denies chest pain at rest, Denies chest pain with activity, Denies edema, Denies irregular heart rhythm, Denies claudication, Denies dyspnea, Denies dyspnea on exertion, Denies orthopnea, Denies paroxysmal nocturnal dyspnea and Denies slow heart rate Resp Denies cough, Denies dyspnea and Denies dyspnea on exertion GI Denies abdominal pain, Denies change in bowel habits, Denies excessive flatus, Denies nausea and Denies vomiting Physical exam (Primary Care) Vital Signs: Last Vital Signs BP 118/70 12/24/24 08:32 BMI result Body Mass Index 21.6 Tobacco/Smoking Status: Tobacco use Status Tobacco use date assessed 12/24/24 12/24/24 08:39 Patient Tobacco Use Status Never used Tobacco 12/24/24 08:39 e-Cigarette/Vaping Use Never Used 12/24/24 08:39 PHQ-9: PHQ-9 Score PHQ-9: Total score 1 12/24/24 08:49 Depression Screening Interpretation: Negative Thrive Assessment: Date of Thrive Assessment Date Thrive assessed 12/24/24 12/24/24 08:39 Currently or been in a relationship where the following occur: No concerns reported [facility] Head: Yes normal to inspection, Yes normocephalic and Yes atraumatic Ears: external ears normal General nose exam: Normal external nose present and No nasal discharge present Mouth: lip normal Eyes General: appearance normal, both eyes and all related structures Eyelids: Yes eyelids normal Conjunctivae: conjunctivae normal Neck Neck: Yes normal visual inspection and Yes supple Resp Effort & Inspection: normal respiratory effort Auscultation: clear to auscultation bilaterally Cardio Jugular venous distension: no JVD Rate: regular rate Rhythm: regular rhythm Heart sounds: S1 normal heart sound present and S2 normal heart sound present GI Inspection: Yes normal to inspection Palpation (GI): Soft to palpation and nontender Auscultation: normal bowel sounds Skin General skin exam: no rashes or lesions noted Neuro General: no focal motor deficits Extrem General: Yes full ROM Psych Appearance: grossly normal Coding Level of Care Code Est Pt Prev Care 40-64y(73254) Diagnoses Physical exam Z00.00 Infiltrating ductal carcinoma of right breast C50.911 Laterality: right Additional Codes GREGG-7 Assessment Billing - GREGG-7 Assessment Tool: GREGG-7 Assessment 74586 ([id number]) PHQ-9 - 89743 - PHQ-9 Billing: Yes ([id number]) Time Spent (min) 31 Assessment & Plan Assessment & Plan (1) Physical exam: Code(s): Z00.00 - Encounter for general adult medical examination without abnormal findings Category: Medical (2) Invasive ductal carcinoma of breast: Code(s): C50.919 - Malignant neoplasm of unspecified site of unspecified female breast Category: Medical Qualifiers: Laterality: right Qualified Code(s): C50.911 - Malignant neoplasm of unspecified site of right female breast Plan Will perform routine health monitoring post-cancer treatments, particularly endocrine function testing given her hypothyroid condition and recent alterations in medication dosage. A six-month follow-up is scheduled to reassess TSH levels. We have outlined a plan to address ongoing colorectal issues with specialist intervention for her post-surgical complications. The patient will maintain her medication regimen, incorporating physical therapy for mobility recovery. Patient was informed and verbally consented to the use of an ambient scribe for clinic note documentation during this visit. During our visit, I reviewed her treatment options and recommended a clear plan regarding her hypothyroid management and future colorectal consultations. Emphasized the careful timing of upcoming blood work for accurate assessments due to her recent medication change. Orders: Orders Comprehensive [place]. Panel Fast Today Z00.00 - Encounter for general adult medical examination without abnormal findings Thyroid Stimulating Hormone Today E03.9 - Hypothyroidism, unspecified Lipid Panel Today Z00.00 - Encounter for general adult medical examination without abnormal findings Vitamin D 25-OH Total Today E55.9 - Vitamin D deficiency, unspecified Patient Instructions: - Continue with levothyroxine 100 mcg and monitor effects - Schedule TSH labs after six to eight weeks - Maintain hydration and dietary intake as discussed - Attend all specialist appointments, particularly with colorectal surgeon - Consider tetanus vaccine in six months - Reevaluate flu vaccine at the next health maintenance visit - Report any new symptoms or adverse effects
[2024-12-24 08:32] VITALS: BP 118/70; BMI 21.6
== END 2024-12-24 09:02 | disposition home or self-care (01) ==
LOC: HO.HMCH 08:29
PROVIDERS: PCP Internal Medicine; Visit Provider Internal Medicine
DX: Z00.00 Encounter for general adult medical examination without abnormal findings (principal); C50.911 Malignant neoplasm of unspecified site of right female breast

== ENCOUNTER → 2024-12-24 08:28 | Outpatient (BNVA) | payer OTHER, SELFPAY | PROVIDERS: PCP Internal Medicine; Visit Provider Internal Medicine | DX: Z00.00 Encounter for general adult medical examination without abnormal findings (principal); C50.911 Malignant neoplasm of unspecified site of right female breast; E03.9 Hypothyroidism, unspecified; Z79.899 Other long term (current) drug therapy | CPT/HCPCS: 96127 ==

== ENCOUNTER 2025-04-27 09:20 | Outpatient (REF) | payer OTHER, SELFPAY ==
[2025-04-27 11:23] LABS: Alanine Aminotransferase 17 U/L (0-31); Albumin Level 4.3 g/dL (3.5-5.0); Alkaline Phosphatase 88 U/L (39-117); Anion Gap 11 (12-20); Aspartate Amino Transferase 22 U/L (5-31); Blood Urea Nitrogen 18 mg/dL (9-16); Calcium 9.6 mg/dL (8.4-10.2); Carbon Dioxide 29 mmol/L (22-29); Chloride 106 mmol/L (96-108); Cholesterol 213 mg/dL (<200); Estimated Glomerular Filt Rate > 60; HDL Cholesterol 70 mg/dL (>40); Potassium 4.5 mmol/L (3.3-5.1); Sodium 141 mmol/L (135-145); Total Protein 6.8 g/dL (6.5-8.0); Triglycerides 49 mg/dL (<150)
[2025-04-27 11:43] LABS: Thyroid Stimulating Hormone 1.27 uIU/mL (0.32-4.0)
== END 2025-04-27 09:21 | disposition home or self-care (01) ==
LOC: HO.LAB 09:20
PROVIDERS: PCP Internal Medicine; Visit Provider Internal Medicine
DX: Z00.00 Encounter for general adult medical examination without abnormal findings (principal); E03.9 Hypothyroidism, unspecified; E55.9 Vitamin D deficiency, unspecified
CPT/HCPCS: 36415; 80053; 80061; 82306; 84443

== ENCOUNTER 2025-06-24 09:53 | Outpatient (AMB) | payer OTHER, SELFPAY ==
[2025-06-24 09:56] VITALS: BP 112/64; PULSE 62; RESP 18; TEMP 35.8; O2SAT 94; BMI 22.6
--- NOTE | 2025-06-24 09:56 | MHC.PC.OV ---
Vital Signs 06/24/25 09:56 Height 5 ft 3 in Weight 127 lb 6 oz BMI 22.6 BP 112/64 Blood Pressure Location Lt brachial Position Sitting Respiration 18 Pulse 62 Pulse Source Pulse Oximeter Temp 96.4 F L Temp Source Temporal Artery Scan Pulse Oximetry (%) 94 Oxygen Delivery Method Room Air Intake Visit Reasons: thyroid Store Shopper Required: No Accompanied by: Self / Same As Patient Allergies cephalexin Allergy (Intermediate, Verified 06/24/25 10:12) hives erythromycin base Allergy (Unknown, Verified 06/24/25 10:12) Diarrhea penicillin V Allergy (Unknown, Verified 06/24/25 10:12) hives Medication List - Last Reconciled 06/24/25 by Denise Rhodes MD cholecalciferol (vitamin D3) 50 mcg PO DAILY 90 days docusate sodium (Colace) 100 mg PO BID levothyroxine (Levoxyl) 75 mcg PO DAILY sumatriptan succinate 50 mg PO Q2-4H PRN 30 days Tobacco use date assessed: 06/24/25 Dental Screening Dental Screen Date: 06/24/25 Did you have a dental visit in the last 12 months?: Yes Did you have a dental problem in the last 6 months where you did not have access to dental care?: No Was dental information given to patient?: Patient has dentist HPI HPI Comments History of Present Illness Details The patient is a 54-year-old female presenting with management of hypothyroidism and follow-up on breast cancer treatment. The patient has a history of hypothyroidism, previously managed with 100 mcg of levothyroxine. Recently, her oncologist recommended a reduction to 75 mcg based on recent blood work, which showed thyroid levels within the normal range. The patient started the new dosage last and will have her thyroid levels re-evaluated in six weeks. The patient was diagnosed with breast cancer in June 2023 and completed treatment, including immunotherapy, by September 2024. She underwent successful reconstructive surgery in September 2024 and reports no complications from the surgeries. The patient reports a significant reduction in migraine frequency, attributing this improvement to a change in her work schedule. 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 The patient experiences visual impairment, with significant blurriness in her left eye, which she attributes to chemotherapy effects. She is scheduled for an eye examination later today. [facility] Medical History Physical exam Anal pain Invasive ductal carcinoma of breast Osteoarthritis Cellulitis of index finger Internal and external prolapsed hemorrhoids Neck pain Migraines Surgical History History of breast reconstruction History of bilateral mastectomy History of salpingo-oophorectomy History of hemorrhoidectomy H/O colonoscopy History of nasal surgery History of nasal polypectomy Family History Father Lung cancer Mother Lung cancer Sister Hemochromatosis Arthritis Brother In good health Daughter In good health Sister No problems noted. Sister No problems noted. Sister No problems noted. Social History Housing: House Alcohol intake: never Patient Tobacco Use Status: Never used Tobacco e-Cigarette/Vaping Use: Never Used Second Hand Smoke Exposure: Yes service: No Current occupational status: employed Current occupational exposures/hazards: No Cognitive needs: No Hearing needs: No Vision needs: Yes Female Reproductive History Menstrual Age of Menarche: 15 Questionnaire Thrive Questionnaire Date Thrive assessed: 12/24/24 I am a: Patient What is your living situation today?: I have a steady place to live Within the past 12 months, did the food you bought not last and you didn't have the money to get more?: Never true Within the past 12 months, did you worry whether your food would run out before you got money to buy more?: Never true Do you have trouble paying for medicines?: No Do you have trouble getting transportation to medical appointments?: No Do you have trouble paying your heating and electricity bill?: No Do you have trouble taking care of your child, family member or friend?: No Do you have trouble with day-to-day activities such as bathing, preparing meals, shopping, managing finances, etc.?: No Are you currently unemployed and looking for a job?: No Are you interested in more education?: No Please select the resources that you would like help with: None Currently or been in a relationship where the following occur: No concerns reported THRIVE Score: 0 GREGG-7 AMB Questionnaire GREGG-7 Date GREGG - 7 assessed: 12/24/24 Source: Developed by Drs. Kevin Ruelas, Paola Isaac, Acosta Larkin and colleagues, with an educational jason from [employer]. Review of Systems Const All systems reviewed & are unremarkable except as noted in HPI and below Card Denies chest pain at rest, Denies chest pain with activity, Denies edema, Denies irregular heart rhythm, Denies claudication, Denies dyspnea, Denies dyspnea on exertion, Denies orthopnea, Denies paroxysmal nocturnal dyspnea and Denies slow heart rate Resp Denies cough, Denies dyspnea and Denies dyspnea on exertion Physical exam (Primary Care) Vital Signs: Last Vital Signs Temp 96.4 F L 06/24/25 09:56 Pulse 62 06/24/25 09:56 Resp 18 06/24/25 09:56 BP 112/64 06/24/25 09:56 Pulse Ox 94 06/24/25 09:56 Oxygen Delivery Method Room Air 06/24/25 09:56 BMI result Body Mass Index 22.6 Tobacco/Smoking Status: Tobacco use Status Tobacco use date assessed 06/24/25 06/24/25 10:05 Patient Tobacco Use Status Never used Tobacco 06/24/25 10:05 e-Cigarette/Vaping Use Never Used 06/24/25 10:05 Thrive Assessment: Date of Thrive Assessment Date Thrive assessed 12/24/24 06/24/25 10:05 Currently or been in a relationship where the following occur: No concerns reported Resp Effort & Inspection: normal respiratory effort Auscultation: clear to auscultation bilaterally Cardio Jugular venous distension: no JVD Rate: regular rate Rhythm: regular rhythm Heart sounds: S1 normal heart sound present and S2 normal heart sound present Extrem General: Yes full ROM Office Procedures Flu Questionnaire Does the patient have a severe egg allergy?: No Does the patient have severe life threatening allergies?: No Does the patient have a fever or illness today?: No Has the patient ever had Guillain-[place] Syndrome?: No Has the patient ever had any past reaction to a flu shot?: No Immunizations Fluarix [id number] (PF) 45 mcg (15 mcg x 3)/0.5 mL IM syringe Performing Provider: Denise Rhodes MD [place]forming [place] [facility] [place] Administered by: Radha Mayfield CMA on 06/24/25 10:26 Dose Route Admin Location Dispensed Lot Number Expiration Date [facility] Assessment Specialist 0.5 mL IM Left Deltoid 0.5 mL [id number] 03/04/26 [id number] [employer] VIS Given Date VIS Provided VIS Publication Date 06/24/25 Single Vaccine 24 Eligibility Eligibility Date Funding Source Not [facility] Eligible 06/24/25 Private Coding Level of Care Code Est Pt Level 3 (88947) Complex EM visit Add On G2211 Diagnoses Hypothyroidism E03.9 Infiltrating ductal carcinoma of right breast C50.911 Laterality: right Time Spent (min) 19 Assessment & Plan Assessment & Plan (1) Hypothyroidism: Code(s): E03.9 - Hypothyroidism, unspecified Category: Medical (2) Invasive ductal carcinoma of breast: Code(s): C50.919 - Malignant neoplasm of unspecified site of unspecified female breast Category: Medical Qualifiers: Laterality: right Qualified Code(s): C50.911 - Malignant neoplasm of unspecified site of right female breast Plan Plan 1. Hypothyroidism, unspecified E03.9 The patient's levothyroxine dosage was adjusted from 100 mcg to 75 mcg based on recent thyroid function tests showing levels within the normal range. The patient will continue on the 75 mcg dosage and have her thyroid levels re-evaluated in six weeks to assess the appropriateness of the dosage. 2. Malignant neoplasm of unspecified site of unspecified female breast C50.919 HCC 12 The patient completed breast cancer treatment, including immunotherapy, by September 2024 and underwent successful reconstructive surgery. She reports no complications from the surgeries and continues to follow up with her oncologist. Orders: Orders Vitamin D 25-OH Total 6 Weeks E55.9 - Vitamin D deficiency, unspecified Thyroid Stimulating Hormone 6 Weeks E03.9 - Hypothyroidism, unspecified Influenza [id number] Immunization Today Z23 - Encounter for immunization
== END 2025-06-24 10:26 | disposition home or self-care (01) ==
LOC: HO.HMCH 09:54
PROVIDERS: PCP Internal Medicine; Visit Provider Internal Medicine
DX: E03.9 Hypothyroidism, unspecified (principal); C50.911 Malignant neoplasm of unspecified site of right female breast; Z23 Encounter for immunization

== ENCOUNTER → 2025-06-24 09:53 | Outpatient (BNVA) | payer OTHER, SELFPAY | PROVIDERS: PCP Internal Medicine; Visit Provider Internal Medicine | DX: E03.9 Hypothyroidism, unspecified (principal); Z23 Encounter for immunization; C50.911 Malignant neoplasm of unspecified site of right female breast; Z79.899 Other long term (current) drug therapy | CPT/HCPCS: 90471; 90656 ==

== ENCOUNTER 2025-08-05 07:56 | Outpatient (REF) | payer OTHER, SELFPAY ==
--- OUTSIDE RECORDS SUMMARY | 2025-08-05 08:00 | XMS_ITS | Patient Health Record ---
Author Organization [facility] Address [address] [place] [id number] Care Team Providers Care Veterinary Microbiologist Name Role Phone Kevin Herbert Unavailable [phone] Reason For Referral No Information Plan Of Treatment No Information
--- OUTSIDE RECORDS SUMMARY | 2025-08-05 08:00 | XMS_ITS | Clinical Summary ---
Author Organization [facility] Address [address] [address] Phone Care Team Providers Care Newspaper Photographer Name Role Phone Natalie Reyna MD Unavailable [phone] Denise Dial MD Primary Care Provid er Allergies Active Allergy Reactions Criticality Noted Date Comments Cephalexin Dermatitis,Hives,Itching,Rash Low 2023 Erythromycin GI Upset 08/03/2017 Penicillins Hives 08/03/2017 Medications SUMAtriptan (IMITREX) 50 MG tablet Take 50 mg by mouth once as needed for migraine. Not to exceed 200 mg/day Active docusate sodium (STOOL SOFTENER) 250 MG capsule 3 Active VITAMIN D3 50 mcg (2,000 unit) capsule Take 1 capsule by mouth every morning. 5 Active ibuprofen (ADVIL,MOTRIN) 600 MG tablet TAKE 1 TABLET BY MOUTH EVERY 6 HOURS FOR 14 DAYS. ALTERNATE EVERY 6 HOURS WITH TYLENOL 5 Active levothyroxine (SYNTHROID, LEVOTHROID) 100 MCG tablet Take 1 tablet by mouth every morning. 5 Active Active Problems Problem Noted Date Diagnosed Date Migraine without aura 08/05/2017 Headache Overview (08/05/2017): premenstrual Resolved Problems Problem Noted Date Diagnosed Date Resolved Date IUD (intrauterine device) in place 08/08/2020 09/07/2023 Overview (08/08/2020): Mirena 04/2017 Immunizations Immunization Administration Dates Next Due Influenza Quadrivalent Preservative Free IM 05/07,09/16/2017 Family History Medical History Relation Comments Diverticulitis Brother No Known Problems Daughter Lung cancer Father Alzheimer's disease Maternal Grandmother Lung cancer Mother Alzheimer's disease Paternal Grandmother Hemochromatosis Sister Migraines Sister Relation Status Comments Brother Daughter Alive Father Maternal Grandmother Mother Paternal Grandmother Sister Social History Tobacco Use Types Packs/Day Years Used Date Smoking Tobacco: Never Passive Smoke Exposure: Never Smokeless Tobacco: Never Tobacco Cessation:Counseling Given: Not Answered Alcohol Use Standard Drinks/Week Comments Not Currently 1 (1 standard drink = 0.6 oz pur e alcohol) month Education Answer Date Recorded Are you interested in more education? Not on edu e 12/31/2022 Are you concerned about learning? Not on file 12/31/2022 No 12/31/2022 No 12/31/2022 Digital Access Answer Date Recorded No 01/29/2023 No 01/29/2023 Reliable internet access at home? Not on file 01/29/2023 Device with a working camera? Not on file Comments No Sex and Gender Information Value Date Recorded Sex Assigned at Not on file Legal Sex Female 9:33 PM EDT Gender Identity Female 09/07/2023 8:26 AM EST Sexual Orientation Straight 09/07/2023 8: 26 AM EST Last Filed Vital Signs Vital Sign Reading Time Taken Comments Blood Pressure 120/70 12/17/2024 11:16 AM EDT Pulse 72 04/22/2017 2:03 AM EDT Temperature - - Respiratory Rate - - Oxygen Saturation - - Inhaled Oxygen Concentration - - Weight 56 kg (123 lb 6.4 oz) 12/17/2024 11:16 AM EDT Height 157.5 cm (5' 2 ) 12/17/2024 11:16 AM EDT Body Mass Index 22.57 12/17/2024 11:16 AM EDT Plan of Treatment Health Maintenance Due Date Last Done Comments Adult Td,Tdap Booster 1971 LIPID PANEL 1971 TSH LEVEL 1971 DEPRESSION SCREENING 1983 HEPATITIS C SCREENING 1989 HIV ONE-TIME SCREENING (18-65 YEARS) 1989 MAMMOGRAM 2011 COLOGUARD 2016 COLONOSCOPY 2016 COLORECTAL CANCER SCREENING 2016 FIT TEST 2016 FOBT 2016 SIGMOIDOSCOPY 2016 VIRTUAL COLONOSCOPY 2016 PNEUMOCOCCAL VACCINES (50+ years) (1 of 1 - PCV) 2021 ZOSTER VACCINES (1 of 2) 2021 INFLUENZA VACCINE (#1) 2025 3, 05/29/2018, 09/16/2017, Additional history exists COVID-19 VACCINE ( - 2024- season) 2025 PAP SMEAR 09/07/2026 09/07/2023, 08/08/2020 RSV VACCINE (1 - 1-dose 75+ series) 2046 SMOKING STATUS SCREENING (Once After 26 Yrs) Completed 09/07/2023 HEPATITIS A VACCINES Aged Out No long er eligible based on patient's age to complete this topic HIB VACCINES Aged Out No longer eligi ble based on patient's age to complete this topic MENINGOCOCCAL VACCINES (ACWY) Aged Out No longer eligible based on patient's age to complete this topic MENINGOCOCCAL VACCINES (B) Aged Out N o longer eligible based on patient's age to complete this topic Medical Devices Not on file Procedures Procedure Name Priority Date/Time Associated Diagnosis Comments PAP TEST Routine 09/07/2023 12:00 AM EST from Last 3 Months or Most Recently Relevant to Health Maintenance Results * Pap Test (09/07/2023 12:00 AM EST) Report [address] [id number] Powertrain Calibration Engineer: aCitlin Meredith MD STRADDLE BUGGY OPERATOR Cytology Report FINAL DIAGNOSIS A. PAP SMEAR (SUREPATH) CE: SPECIMEN ADEQUACY: Satisfactory for evaluation; transformation zone present. INTERPRETATION: NEGATIVE FOR INTRAEPITHELIAL LESION OR MALIGNANCY. Atrophy. Electronically Signed Out By: EZEKIEL Valencia(ASCP) EZEKIEL Daily(ASCP) The Pap test is a screening test primarily for squamous cancers and precursors and has associated false-negative and false-positive results. New technologies such as liquid-based preparations may decrease but will not eliminate all false-negative results. Regular sampling and follow-up of unexplained clinical signs and symptoms are recommended to minimize false negative results. PROCEDURES/ADDENDA HPV Testing (Requested) Ordered Date: 09/08/2023 A. PAP SMEAR (SUREPATH) CE: Human Papilloma Virus Test NEGATIVE for high-risk Human Papilloma Virus types 16, 18, 45 and the Other high risk probe set (Includes 31, 33, 35, 39, 51, 52, 56, 58, 59, 66, 68) Note: Testing performed by [facility] HR-HPV analysis. Clinical correlation is advised. This HPV test was performed at [facility], [address] [place] [address]. This test has been FDA approved for SurePath cervical cytology specimens. The accuracy and precision of this test for all other specimen sources has been verified in the Cytopathology Laboratory of the [facility] and has not been cleared or approved by the U.S. Food and Drug Administration. Clinical correlation is advised. CLINICAL HISTORY Date of Last Menstrual Period: Not Provided Menstrual History: Unknown Cancer History: Breast Carcinoma Other Clinical Conditions: Screening Pap SPECIMEN SOURCE A: PAP SMEAR (SUREPATH) CE Patient Name: VANESSA MONTALVO : 1970 (Age: 53) Sex: F Institution: [facility] Location: [facility] Date of Collection: 09/07/2023 Date of Reported: 09/14/2023 14:26 Results to: Natalie Reyna MD [facility] Final Diagnosis A. PAP SMEAR (SUREPATH) CE: SPECIMEN ADEQUACY: Satisfactory for evaluation; transformation zone present. INTERPRETATION: NEGATIVE FOR INTRAEPITHELIAL LESION OR MALIGNANCY. Atrophy. [facility] Results\Inter pretation A. PAP SMEAR (SUREPATH) CE: Human Papilloma Virus TestNEGATIVE for high-risk Human Papilloma Virus types 16, 18, 45 and the Other high risk probe set (Includes 31, 33, 35, 39, 51, 52, 56, 58, 59, 66, 68)Note: Testing performed by [facility] HR-HPV analysis. Clinical correlation is advised. This HPV test was performed at [facility], [address] [place] [address]. This test has been FDA approved for [facility]Path cervical cytology specimens. The accuracy and precision of this test for all other specimen sources has been verified in the Cytopathology Laboratory of the [facility] and has not been cleared or approved by the U.S. Food and Drug Administration. Clinical correlation is advised. [facility] Conversion Type (Conversion Source) 09/07/2023 09/08/2023 9:07 AM EST us Natalie Reyna MD CYTOLOGY ORDERABLES Edited Result - Final [facility] [address] [place] [address] from Last 3 Months or Most Recently Relevant to Health Maintenance Insurance HMO HMO HMO O O O O O O Care Teams Newspaper Photographer Relationship Specialty Start Date End Date Denise Dial MD [address] [place] [id number] PCP - General 06/23/17 Natalie Reyna MD [address] [place] [address], [facility] [address] [place] [address] [email or web address] Historical LMR Provider 06/22/17 Additional Source Comments The information contained in this document represents components of the legal health record. It is not the complete legal health record.[facility]
[2025-08-05 09:37] LABS: Thyroid Stimulating Hormone 15.41 uIU/mL (0.32-4.0)
== END 2025-08-05 07:57 | disposition home or self-care (01) ==
LOC: HO.LAB 07:56
PROVIDERS: PCP Internal Medicine; Visit Provider Internal Medicine
DX: E55.9 Vitamin D deficiency, unspecified (principal); E03.9 Hypothyroidism, unspecified
CPT/HCPCS: 36415; 82306; 84443